=== PATIENT | female | born 1930 | race Caucasian/White ===

== ENCOUNTER 2019-03-24 10:55 | Inpatient (IN) ==
--- OUTSIDE RECORDS SUMMARY | 2019-03-24 10:57 | External Medical Summary | Continuity of Care Document ---
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 , M.D. Refills: 0 raNITIdine HCl - 150 MG Oral Capsule; TAKE 1 CAPSULE DAILY. , M.D. Refills: 0 Vitamin D 08793 UNIT CAPS; TAKE 1 CAPSULE WEEKLY. , M.D. Refills: 0 [employer] Contour Test PERIP M.DManda Refills: 0 Levothyroxine Sodium 75 MCG Oral Tablet; TAKE 1 TABLET DAILY . , M.D. Refills: 0 Pantoprazole Sodium 20 MG Oral Tablet Delayed Release; TAKE 1 TABLET DAILY. , M.D. Refills: 0 Voltaren 1 % Transdermal Gel; apply 2gms to affected area QI D Sanjay orozco Refills: 0 Tylenol Extra Strength 500 MG Oral Tablet; one tab QID pam lanza M.D. Start: 29-Nov-2013 Refills: 0 Gabapentin 300 MG Oral Capsule; TAKE 2 CAPSULES TWICE DAILY , M.D. Refills: 0 Aspirin 81 MG TABS; take 1 tablet 3 times weekly , M.D. Refills: 0 Carvedilol 12.5 MG Oral Tablet; TAKE 1 TABLET TWICE DAILY. , M.D. Refills: 0 Crestor 40 MG Oral Tablet; TAKE 1 TABLET DAILY. , M.D. Refills: 0 Cilostazol 100 MG Oral Tablet; TAKE 1 TABLET TWICE DAILY. , M.D. Refills: 0 metFORMIN HCl - 500 MG Oral Tablet; TAKE 1 TABLET DAILY. , M .D. Refills: 0 Procedures Procedures not documented Immunizations Immunizations not documented Social History - Smoking Status Former smoker Plan of Treatment Planned Observations Planned Goals not documented Results No Known Results Results not documented
[2019-03-24] MEDS ORDERED: ACETAMINOPHEN 500 MG TAB PO STA (11:21)
[2019-03-24] MEDS ORDERED: ONDANSETRON INJ 2 MG/ML 2 ML VIAL IV STA (11:21)
[2019-03-24] MEDS ORDERED: SODIUM CHLORIDE 0.9% 1000ML 1,000 ML IV SCH ×2 (11:30→16:31)
[2019-03-24] MEDS ORDERED: LORazepam 0.5 MG/1 ML VIAL IV STA (11:32)
[2019-03-24 11:37] LABS: Appearance Urine Clear (Clear); Bacteria Urine Automated Negative (Negative); Bilirubin Urine Negative (Negative); Blood Urine Trace (Negative); Color Urine Yellow; Epithelial Cell Urine Auto >30 /lpf (0-5); Glucose Urine UA Negative (Negative); Ketones Urine Negative (Negative); Leukocyte Esterase Urine Negative (Negative); Nitrite Urine Negative (Negative); RBC Urine Automated 0-4 /hpf (0-4); Specific Gravity Urine 1.015 (1.000-1.030); Urobilinogen Urine Negative (Negative); pH Urine 7.5 (4.5-7.5)
[2019-03-24 11:46] LABS: Basophils # (auto) 0.01 K/uL (0-0.2); Basophils % (auto) 0.2 %; Eosinophils # (auto) 0.02 K/uL (0-0.5); Eosinophils % (auto) 0.3 %; Hematocrit (blood only) 37.7 % (37-47); Immature Granulocytes # (auto) 0.01 K/uL (0.00-0.02); Immature Granulocytes % (auto) 0.2 %; Lymphocytes # (auto) 0.87 K/uL (1.2-3.4); Lymphocytes % (auto) 14.8 %; Mean Corpuscular Hgb Conc 34.5 g/dL (32-36); Mean Corpuscular Volume 90.4 fL (80-100); Monocytes # (auto) 0.78 K/uL (0.11-0.59); Monocytes % (auto) 13.3 %; Neutrophils # (auto) 4.19 K/uL (1.4-6.5); Neutrophils % (auto) 71.2 %; Platelet Count 178 K/uL (130-400); RDW Standard Deviation 45.9 fL (36.4-46.3); Red Blood Count 4.17 M/uL (4.2-5.4); White Blood Count 5.88 K/uL (4.8-10.8)
[2019-03-24] MEDS: fentaNYL citrate 100 MCG/2 ML VIAL IV PRN ×2 (11:47→12:44)
[2019-03-24 12:04] LABS: Albumin Level 3.5 gm/dl (3.4-5.0); BUN Creatinine Ratio 19.2 (10-20); Calcium 9.2 mg/dl (8.5-10.1); Creatinine Clr Calc Pharmacy 35.8 ml/min; Est GFR (African American) 44.5; Est GFR (Non-African American) 38.4; Potassium 3.5 mmol/L (3.5-5.1)
[2019-03-24 12:07] LABS: Albumin Globulin Ratio 0.8 (0.9-2); Bilirubin,Total 0.5 mg/dl (0.2-1); Globulin 4.3 gm/dl (2.5-4.0); Total Protein 7.8 gm/dl (6.4-8.2)
[2019-03-24 12:16] LABS: Protein Urine 1+ (Negative)
[2019-03-24] MEDS ORDERED: IOVERSOL 100ml IV PRN (12:25)
--- NOTE | 2019-03-24 12:47 | CT Scan Report ---
CT OF THE ABDOMEN AND PELVIS WITH CONTRAST CLINICAL HISTORY: Right flank pain. COMPARISON STUDY: None. TECHNIQUE: Following IV administration of 94 mL of Optiray-320, axial images of the abdomen and pelvi s were obtained from the lung bases to the proximal femurs. Images were reviewed in the axial, sagitt al, and coronal planes. IV contrast was administered without complication. Automated exposure contro l was utilized for the study. A dose lowering technique was utilized adhering to the principles of A DELIA. CT DOSE: 899.70 mGy.cm FINDINGS: Postoperative findings within the right breast are noted. Heart is moderately enlarged. Pac er leads are partially imaged. Mild biliary ductal dilatation is likely related to previous cholecyst ectomy. 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 A peripherally calcified left renal artery aneurysm measures 1.7 cm. There is no abdominal aortic aneurysm. There is moderate atherosclerotic plaque. No pancreatic ductal dilatation is present. A few left renal cysts are noted. There are bilateral parapelvic cysts. There is no evidence for a bowel obstruction. The appendix is normal. Extensive sigmoid diverticulosis is noted without evidence for acute diverticulitis. Mild L3 compression fractures acute appearing with mild prevertebral infiltration. There is minimal retropuls ion. Old mild L5 compression fracture is noted. IMPRESSION: 1. Acute appearing mild L3 compression fracture with minimal retropulsion. Old L5 compression fractur e. 2. No bowel obstruction. Normal appendix. No acute process within the abdomen or pelvis. 3. 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 1.6 cm peripherally calcified right daly l artery aneurysm. 4. Extensive diverticulosis without evidence for acute diverticulitis. Electronically signed by: Quan Duran M.D. 03/24/2019 12:45 PM
--- NOTE | 2019-03-24 15:13 | History & Physical Report ---
Date of Service March 24, 2019 Assessment & Plan (1) Intractable low back pain: (2) Compression fracture of third lumbar vertebra: (3) Spinal stenosis: This is an 89-year-old female who has a significant past medical history of HTN, HLD, PAD, heart block status post PPM approximately 10 years ago, hypothyroidism, history of breast cancer status post right partial mastectomy in 1997, osteoporosis, arthritis, lumbar spinal stenosis who presents to [facility] ED secondary to intractable low back pain x1 week. In ED patient underwent CT scan of abdomen and pelvis for persistent low back pain. CT revealed acute appearing mild L3 compression fracture with minimal retropulsion along with old L5 compression fracture. There was extensive diverticulosis but no evidence of diverticulitis. Incidentally bilateral renal artery aneurysms were again noted 1.7 cm on the left and 1.6 cm on the right. No other acute abnormality. Her CBC was relatively unremarkable. CMP significant for elevated BUN 24 creatinine 1.25 with unknown baseline. Her urine appeared negative for infection. admit to med/surg consult ortho spine Dr. Presley conservative management with PT/OT, Ice, Pain control Schedule APAP 650 QID; Tramadol 50mg q4hr prn pain Morphine 2mg IV q2hr PRN SEVERE pain complete medrol dose pack, pt on day 4/5 today (4) DAMON (acute kidney injury): Unknown baseline BUN/creatinine 24 and 1.25, this may be normal for her vs DAMON in setting of NSAID use with back pain IVF NS x 1 L ordered Hold HCTZ repeat bmp in am. (5) UTI (urinary tract infection): Diagnosed at OSH on 03/22 Started on Keflex 500 mg 4 times daily, will complete course on 03/30/19 Urinalysis negative in ED (6) HTN (hypertension): Blood pressure elevated in ED likely in setting of pain Continue coreg, losartan hold HCTZ due to possible DAMON (7) HLD (hyperlipidemia): Continue statin (8) PAD (peripheral artery disease): Continue Pletal, ASA, Statin Symptoms mostly easy fatigability lower extremities, no history of vascular intervention (9) History of cardiac pacemaker: hx of heart block s/p PPM approx 10 yrs ago Follows Cardiology in [place], [place] (10) Hypothyroidism: Continue levothyroxine (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 Stevens upon discharge, along with appropriate orthopedic and vascular follow up (renal art aneurysm) Patient was seen and examined in collaboration with Dr. Bullock, please see addendum History of Present Illness Chief Complaint: Low back pain x 1 week. Primary Care Provider: Ailyn Stevens This is an 89-year-old female who has a significant past medical history of HTN, HLD, PAD, heart block status post PPM approximately 10 years ago, hypothyroidism, history of breast cancer status post right partial mastectomy in 1997, osteoporosis, arthritis, lumbar spinal stenosis who presents to [facility] ED secondary to low back pain x1 week. Son is at bedside. No known injury. She states approximately 1 week ago she was favoring her right knee when she may have twisted wrong causing her to have low back pain. Pain is located in the low back region bilaterally, no radiation, described as dull ache when sitting and becomes sharp stabbing with movement or lying down. Currently she is sitting in wheelchair and feels her pain is approximately 5/10 after having IV fentanyl. She has been unable to lie in bed for the past week secondary to her pain. She has tried [id number] Motrin with minimal relief. At baseline she ambulates with a cane but has had significant difficulty ambulating. She was to be seen by Dr. Li on Wednesday but due to debilitating pain opted to come to ED for further evaluation. She was seen in [place] [facility] on 03/[address] scan of the lumbar spine which revealed multilevel lateral recess and neuroforaminal stenosis extending from L2-S1 secondary to desiccation and disc bulge as well as significant facet arthropathy. She had chronic appearing compression fractures of L3 and L5 with severe osteoporosis noted. Also incidentally she had bilateral renal artery aneurysms measuring 1.6 cm on the left and 1.4 cm on the right. Further she was diagnosed with urinary tract infection and placed on Keflex for 7 days. She was also treated with Medrol Dosepak for back pain. In regards to her uti she states her sx are, "leakage and frequency." She denies dysuria, hematuria, increased urgency. Further she denies fever, chills, sweats, lightheadedness, chest pain, shortness of breath, nausea, vomiting, abdominal pain, change in bowel habits. She does elicit to nausea when pain is severe. She also elicits to dizziness with standing quickly. In ED patient underwent CT scan of abdomen and pelvis for persistent low back pain. CT revealed acute appearing mild L3 compression fracture with minimal retropulsion along with old L5 compression fracture. There was extensive diverticulosis but no evidence of diverticulitis. Incidentally bilateral renal artery aneurysms were again noted 1.7 cm on the left and 1.6 cm on the right. No other acute abnormality. Her CBC was relatively unremarkable. CMP significant for elevated BUN 24 creatinine 1.25 with unknown baseline. Her urine appeared negative for infection. Allergies Allergy/AdvReac Type Severity Reaction Status Date / Time meperidine Allergy Verified 03/24/19 12:08 Penicillins Allergy Verified 03/24/19 12:08 tetracycline Allergy Verified 03/24/19 12:08 Tetracyclines Allergy Verified 03/24/19 12:08 N Allergy Unknown Unknown Uncoded 03/24/19 12:08 ANALG/ANTIPYRET Allergy Unknown Uncoded 03/24/19 12:08 ANTIBIOT Allergy Unknown Uncoded 03/24/19 12:08 OPIATEAGONISTS Allergy Unknown Uncoded 03/24/19 12:08 Home Medications Home Medications Medication Instructions Recorded Confirmed Type aspirin [Aspirin Low Dose] 81 mg PO QAM 03/24/19 03/24/19 History carvedilol 25 mg PO BID 03/24/19 03/24/19 History cephalexin 500 mg PO Q6H 03/24/19 03/24/19 History cilostazol 100 mg PO BID 03/24/19 03/24/19 History gabapentin 300 mg PO BID 03/24/19 03/24/19 History levothyroxine 75 mcg PO MOTUWETHFRSA 03/24/19 03/24/19 History losartan-hydrochlorothiazide 1 tab PO QAM 03/24/19 03/24/19 History methylprednisolone 4 mg PO UD 03/24/19 03/24/19 History rosuvastatin 40 mg PO HS 03/24/19 03/24/19 History Past Med/Surg History Medical History Hypothyroidism (Chronic) HTN (hypertension) (Chronic) HLD (hyperlipidemia) (Chronic) PAD (peripheral artery disease) (Chronic) History of cardiac pacemaker (Chronic) History of complete heart block (Chronic) Status post pacemaker ~10 years ago Neuropathy (Chronic) History of right breast cancer (Chronic) Status post partial mastectomy with radiation Spinal stenosis (Chronic) Arthritis (Chronic) Surgical History History of partial mastectomy of right breast (Chronic) History of cholecystectomy (Chronic) History of hysterectomy with oophorectomy (Chronic) History of lumbar discectomy (Chronic) At age of 39 Family History Father Coronary heart disease Mother Stroke Sister Breast cancer Brother CHF (congestive heart failure) Social History Preferred Language: Hebrew Communication Ability: Effective marital status: Current Living Situation: Spouse other: Ambulates with cane Feels Safe at Home: Yes Smoking Status: Never smoker Hx Alcohol Use: Yes Alcohol type: beer Alcohol Intake Frequency: Rarely Hx Substance Use: No Review of Systems Review of Systems: As noted per HPI, 10 systems reviewed and negative unless noted above. Physical Exam Physical Exam: Gen: WD/WN, [place], F, sitting up in wheel chair, NAD, pleasant, conversing easily Head: Normocephalic, Atraumatic Eyes: Sclera normal, no conjunctival injection, PERRLA, EOMI ENT: Gross hearing intact, normal pharynx, mucous membranes moist Neck: supple, no adenopathy, No JVD, no bruit, Resp: Clear to auscultation b/l, no wheeze, rales, rhonchi. 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 No pain to palpation along vertebral processes, +straight leg raise Extremities: No edema bilaterally Skin: warm, moist, no rash, negative turgor, cap refill < 2sec Neuro: Alert and oriented x 3, speech normal, good mood/affect, cran nerve 2-12 intact grossly : deferred Results & Data Vital Signs (Past 12 Hours) Vital Signs Temp Pulse Pulse Resp BP BP Pulse Ox 03/24/19 14:15 60 17 187/81 H 99 03/24/19 12:41 78 17 188/80 H 96 03/24/19 11:00 36.7 C 81 20 168/84 H 92 Laboratory Results Short CBC 03/24/19 Range/Units 11:40 WBC 5.88 (4.8-10.8) K/uL Hgb 13.0 (12.0-16.0) g/dL Hct 37.7 (37-47) % Plt Count 178 (130-400) K/uL BMP 03/24/19 11:40 Sodium 137 Potassium 3.5 Chloride 101 Carbon Dioxide 30 BUN 24 H Creatinine 1.25 H Glucose 103 H Calcium 9.2 Liver Function 03/24/19 Range/Units 11:40 Total Bilirubin 0.5 (0.2-1) mg/dl AST 15 (15-37) U/L ALT 16 (12-78) U/L Alkaline Phosphatase 64 (45-117) U/L Albumin 3.5 (3.4-5.0) gm/dl Urine 03/24/19 Range/Units 11:10 Urine Color Yellow Urine Appearance Clear (Clear) Urine pH 7.5 (4.5-7.5) Ur Specific [place] 1.015 (1.000-1.030) Urine Protein 1+ H (Negative) Urine Glucose (UA) Negative (Negative) Diagnostic Findings CT scan abd/pelvis: FINDINGS: Postoperative findings within the right breast are noted. Heart is moderately enlarged. Pacer leads are partially imaged. Mild biliary ductal dilatation is likely related to previous cholecystectomy. 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 A peripherally calcified left renal artery aneurysm measures 1.7 cm. There is no abdominal aortic aneurysm. There is moderate atherosclerotic plaque. No pancreatic ductal dilatation is present. A few left renal cysts are noted. There are bilateral parapelvic cysts. There is no evidence for a bowel obstruction. The appendix is normal. Extensive sigmoid diverticulosis is noted without evidence for acute diverticulitis. Mild L3 compression fractures acute appearing with mild prevertebral infiltration. There is minimal retropulsion. Old mild L5 compression fracture is noted. CT Scan Abd/Pelvis: 03/22 Clfd ER ReporT: CT scan of the lumbar spine which revealed multilevel lateral recess and neuroforaminal stenosis extending from L2-S1 secondary to desiccation and disc bulge as well as significant facet arthropathy. She had chronic appearing compression fractures of L3 and L5 with severe osteoporosis noted. Also incidentally she had bilateral renal artery aneurysms measuring 1.6 cm on the left and 1.4 cm on the right. Medications Administered Fentanyl Citrate (Fentanyl Citrate) 25 mcg IV Q15M PRN PRN Reason: Pain Stop: 04/07/19 11:20 Last Admin: 03/24/19 12:44 Dose: 25 mcg Documented by: [id number] Admin: 03/24/19 11:47 Dose: 25 mcg Documented by: [id number] Sodium Chloride (Nss 1000ml) 1,000 mls @ 100 mls/hr IV .Q10H KEYLA Stop: 03/24/19 21:29 Last Admin: 03/24/19 11:48 Dose: 100 mls/hr Documented by: [id number] Ioversol (Optiray 320 100ml) 94 ml IV ONCE PRN PRN Reason: Interaction Checking Stop: 03/28/19 12:24 Last Admin: 03/24/19 12:25 Dose: 94 ml Documented by: [id number] Discontinued Medications Acetaminophen (Tylenol) 1,000 mg PO NOW STA Stop: 03/24/19 11:22 Last Admin: 03/24/19 11:44 Dose: 1,000 mg Documented by: [id number] Lorazepam (Ativan) 0.5 mg in 1 mls @ 1 mls/min IV NOW STA Stop: 03/24/19 11:33 Last Admin: 03/24/19 11:46 Dose: 1 mls/min Documented by: [id number] Ondansetron HCl (Zofran) 4 mg IV NOW STA Stop: 03/24/19 11:22 Last Admin: 03/24/19 11:45 Dose: 4 mg Documented by: [id number] Code Status & VTE Plan Code Status Full Code VTE Prophylaxis Plan VTE Prophylaxis will be ordered: Yes Supervising Physician Co-Signing Physician Notes I have seen and assessed the patient with physician urology physician assistant and agree with the assessment and plan and would like to comment that Main issue for patient coming to hospital is back pain and CT finding of Old L5 compression fracture with acute appearing mild L3 compression fracture with minimal retropulsion. Patient reports that shes has been taking NSAIDs 3 to 4 times a day and medrol pack at home without relief especially when she tries to lay flat and when she i s in a position to try to stand up On my exam General: no acute distress Back: patient able to sit up and maintain upright sitting position without weakness, currently she feels more tenderness when pressing on the right lower back Lungs: clear to auscultaion bilaterally, no wheezing Heart: regular rate abdomen: soft nontender, positive bowel sounds There are incidental findings of 1.7 cm peripherally calcified left renal artery aneurysm and1.6 cm peripherally calcified right renal artery aneurysm and Extensive diverticulosis, and patient has been on antibiotics for urinary tract infection (current urine analysis appears free of bacteria), however as per patient and patients son Hilton ([phone], other son [phone] Benigno) that goal is to alleviate severity of back pain. Hypertension likely exacerbated by pain will have patient on scheduled tylenol as 325 mg every 6 hours ; Tramadol 50mg q4hr prn pain for pain; Morphine 2mg IV q2hr PRN SEVERE pain, medrol dose pack, and seek orthopedic consultation. will also request pain management consult if they are available to consider epidural injection for patient if no acute surgical interventions. (1) Compression fracture of third lumbar vertebra Encounter type: initial encounter Qualified Code(s): S32.030A - Wedge compression fracture of third lumbar vertebra, initial encounter for closed fracture
[2019-03-24] MEDS ORDERED: MAGNESIUM HYDROXIDE SUSP 30 ML UDC PO PRN (16:31)
[2019-03-24] MEDS ORDERED: POLYETHYLENE (MIRALAX) 17 GM PACK PO PRN (16:31)
[2019-03-24] MEDS ORDERED: ALUMINUM/MAGNESIUM SUSP 30 ML UDC PO PRN (16:31)
[2019-03-24] MEDS ORDERED: ONDANSETRON INJ 2 MG/ML 2 ML VIAL IV PRN (16:31)
[2019-03-24] MEDS ORDERED: TRAMADOL HCL 50 MG TABLET PO PRN (16:31)
[2019-03-24] MEDS ORDERED: MoRPHine SULFATE 2 MG/ML CARP IV PRN (16:31)
[2019-03-24] MEDS ORDERED: ACETAMINOPHEN 325 MG TAB PO PRN (16:31)
--- NOTE | 2019-03-24 16:39 | Emergency Department Note ---
Entered by Gi Horn acting as a scribe for History of Present Illness General Chief complaint: Back Injury/Pain Stated complaint: EXTREME AND ACUTE LOWER BACK PAIN Time Seen by Provider: 03/24/19 11:04 Source: patient and family Mode of arrival: ambulatory Limitations: no limitations History of Present Illness Provider complaint: low back pain Onset (ago): week(s) 1 Location: back Pain Consistency: + other (persistent) Maximum Pain Intensity: 10 Current Pain Intensity: 9 Quality: + other (low back pain) Associated symptoms: + loss of appetite and + other (UTI symptoms, restless) Treatments prior to arrival: NSAID (ibuprofen) and other (steroids) The patient is an 89 year old female with a past medical history of arthritis, multi-level disc herniation, and spinal stenosis who presents to the ER with her son with complaints of persistent lower back pain that began about a week ago. The patient denies any injuries or falls but believes she may have twisted her back on a step on March 16. She states that she is unable to sleep secondary to the pain. The son at bedside notes that the patient had a CAT scan of her lower back done in [place] and started on a six day course of steroids. The patient reports that she has also been taking ibuprofen in addition to these steroids. The son states that the patient has a follow-up appointment on April 05 but that she cannot wait that long. He notes that the patient is unable to tolerate an MRI secondary to the pain as well as having a pacemaker. The son also reports that the patient was found to have a UTI and was started on Keflex. He states that she is not mobile and has no help at home. Per son, the patient has had a loss of appetite as well. The patient rated her pain a 9/10 at triage. Home Medications Home Medications Medication Instructions Recorded Confirmed Type aspirin [Aspirin Low Dose] 81 mg PO QAM 03/24/19 03/24/19 History carvedilol 25 mg PO BID 03/24/19 03/24/19 History cephalexin 500 mg PO Q6H 03/24/19 03/24/19 History cilostazol 100 mg PO BID 03/24/19 03/24/19 History gabapentin 300 mg PO BID 03/24/19 03/24/19 History levothyroxine 75 mcg PO MOTUWETHFRSA 03/24/19 03/24/19 History losartan-hydrochlorothiazide 1 tab PO QAM 03/24/19 03/24/19 History methylprednisolone 4 mg PO UD 03/24/19 03/24/19 History rosuvastatin 40 mg PO HS 03/24/19 03/24/19 History Allergies Allergy/AdvReac Type Severity Reaction Status Date / Time meperidine Allergy Verified 03/24/19 12:08 Penicillins Allergy Verified 03/24/19 12:08 tetracycline Allergy Verified 03/24/19 12:08 Tetracyclines Allergy Verified 03/24/19 12:08 N Allergy Unknown Unknown Uncoded 03/24/19 12:08 ANALG/ANTIPYRET Allergy Unknown Uncoded 03/24/19 12:08 ANTIBIOT Allergy Unknown Uncoded 03/24/19 12:08 OPIATEAGONISTS Allergy Unknown Uncoded 03/24/19 12:08 Past Med/Surg History Medical History Hypothyroidism (Chronic) HTN (hypertension) (Chronic) HLD (hyperlipidemia) (Chronic) PAD (peripheral artery disease) (Chronic) History of cardiac pacemaker (Chronic) History of complete heart block (Chronic) Status post pacemaker ~10 years ago Neuropathy (Chronic) History of right breast cancer (Chronic) Status post partial mastectomy with radiation Spinal stenosis (Chronic) Arthritis (Chronic) Surgical History History of partial mastectomy of right breast (Chronic) History of cholecystectomy (Chronic) History of hysterectomy with oophorectomy (Chronic) History of lumbar discectomy (Chronic) At age of 39 Family History Father Coronary heart disease Mother Stroke Sister Breast cancer Brother CHF (congestive heart failure) Social History Preferred Language: Estonian Communication Ability: Effective Panel Cutter Required: No Beliefs That Will Affect Care: None marital status: Current Living Situation: Spouse Other Information That Helps Us Care for You: No other: Ambulates with cane Feels Safe at Home: Yes Safety Concerns: Feels Safe At This Time Smoking Status: Former smoker Do You Dip or Chew Tobacco: No Smoking End Date: 50 years ago Second Hand Exposure: No Tobacco Cessation Education Requested by Patient: No Hx Alcohol Use: No Hx Substance Use: No Review of Systems See HPI for pertinent positives & negatives. and A total of 10 systems reviewed and were otherwise negative Physical Exam Vital Signs Vital Signs - 24 hr 03/24/19 11:00 03/24/19 12:41 03/24/19 14:15 Temperature 36.7 C Temperature Source Oral Sepsis Recent Fever Within 48 Hours No Sepsis New/Unexplained Change in Mental Status No Sepsis Action Taken by Nursing No Action Required Pulse Rate 81 Pulse Rate [Left Finger] 78 60 Respiratory Rate 20 17 17 Respiratory Effort / Characteristics Non-Labored Spontaneous Respiratory Depth Normal Normal Blood Pressure 168/84 H Blood Pressure [Left Arm] 188/80 H 187/81 H Blood Pressure Mean 112 Blood Pressure Mean [Left Arm] 116 116 Pulse Oximetry 92 96 99 Oxygen Delivery Method Room Air Room Air Room Air Vital signs reviewed. General: Sitting up in wheelchair, no apparent distress. HEENT: No scleral icterus, PERRLA, neck supple. Atraumatic. Cardiovascular: Regular rate and rhythm, no extra sounds. Pulmonary: Clear to auscultation bilaterally, normal work of breathing. Abdomen: Soft, nondistended, positive bowel sounds. Musculoskeletal: Atraumatic, no peripheral edema. Non-tender to palp over the cervical, thoracic or lumbar spine. No step-off or deformity. Tenderness to palpation over the right flank/lumbar paraspinous muscles. Neurologic: Patient awake alert and oriented x 3 Skin: Warm, dry, no rash Course 1117: Past medical records reviewed. The patient was evaluated in room C9. A complete history and physical examination was performed. 1146: I updated the patient and her son and they are agreeable with the treatment plan. 1150: I discussed the patient's case with Dr. Kobe White Hospitalist. He will evaluate the patient for further management. Administered Medications Acetaminophen (Tylenol) 325 mg PO Q6H [facility] Stop: 04/23/19 16:59 Last Admin: 03/27/19 04:54 Dose: 325 mg Documented by: [id number] Admin: 03/26/19 23:26 Dose: Not Given Documented by: [id number] Admin: 03/26/19 18:10 Dose: 325 mg Documented by: [id number] Admin: 03/26/19 13:38 Dose: 325 mg Documented by: [id number] Admin: 03/26/19 05:11 Dose: 325 mg Documented by: [id number] Admin: 03/25/19 22:07 Dose: 325 mg Documented by: [id number] Admin: 03/25/19 19:23 Dose: 325 mg Documented by: [id number] Admin: 03/25/19 13:00 Dose: 325 mg Documented by: [id number] Admin: 03/25/19 05:58 Dose: 325 mg Documented by: [id number] Admin: 03/24/19 21:54 Dose: 325 mg Documented by: [id number] Admin: 03/24/19 17:27 Dose: 325 mg Documented by: [id number] Amlodipine Besylate (Norvasc) 10 mg PO [facility] Stop: 04/26/19 08:59 Last Admin: 03/27/19 08:05 Dose: 10 mg Documented by: [id number] Aspirin (Ecotrin Ectab) 81 mg PO [facility] Stop: 04/24/19 08:59 Last Admin: 03/26/19 10:32 Dose: Not Given Documented by: [id number] Admin: 03/25/19 09:18 Dose: 81 mg Documented by: [id number] Carvedilol (Coreg) 25 mg PO BID [facility] Stop: 04/23/19 20:59 Last Admin: 03/27/19 08:03 Dose: 25 mg Documented by: [id number] Admin: 03/26/19 20:37 Dose: 25 mg Documented by: [id number] Admin: 03/26/19 10:33 Dose: 25 mg Documented by: [id number] Admin: 03/25/19 21:47 Dose: 25 mg Documented by: [id number] Admin: 03/25/19 09:17 Dose: 25 mg Documented by: [id number] Admin: 03/24/19 20:23 Dose: 25 mg Documented by: [id number] Cephalexin HCl (Keflex) 500 mg PO Q12H [facility]; Protocol Stop: 04/01/19 20:59 Last Admin: 03/27/19 08:04 Dose: 500 mg Documented by: [id number] Admin: 03/26/19 20:37 Dose: 500 mg Documented by: [id number] Admin: 03/26/19 10:34 Dose: 500 mg Documented by: [id number] Admin: 03/25/19 21:46 Dose: 500 mg Documented by: [id number] Admin: 03/25/19 09:18 Dose: 500 mg Documented by: [id number] Admin: 03/24/19 20:23 Dose: 500 mg Documented by: [id number] Cilostazol (Pletal) 100 mg PO BID [facility] Stop: 04/23/19 20:59 Last Admin: 03/27/19 08:06 Dose: 100 mg Documented by: [id number] Admin: 03/26/19 20:37 Dose: 100 mg Documented by: [id number] Admin: 03/26/19 13:32 Dose: Not Given Documented by: [id number] Admin: 03/25/19 21:46 Dose: 100 mg Documented by: [id number] Admin: 03/25/19 09:20 Dose: 100 mg Documented by: [id number] Admin: 03/24/19 20:23 Dose: 100 mg Documented by: [id number] Citalopram Hydrobromide (Celexa) 10 mg PO DAILY [facility] Stop: 04/24/19 08:59 Last Admin: 03/27/19 08:07 Dose: 10 mg Documented by: [id number] Admin: 03/26/19 10:32 Dose: 10 mg Documented by: [id number] Admin: 03/25/19 09:14 Dose: 10 mg Documented by: [id number] Docusate Sodium (Colace) 100 mg PO BID [facility] Stop: 04/24/19 20:59 Last Admin: 03/27/19 08:03 Dose: 100 mg Documented by: [id number] Admin: 03/26/19 20:39 Dose: 100 mg Documented by: [id number] Admin: 03/26/19 10:33 Dose: 100 mg Documented by: [id number] Admin: 03/25/19 21:47 Dose: 100 mg Documented by: [id number] Enoxaparin Sodium (Lovenox) 30 mg SQ QAM [facility] Stop: 04/24/19 09:59 Last Admin: 03/26/19 10:31 Dose: Not Given Documented by: [id number] Admin: 03/25/19 13:02 Dose: 30 mg Documented by: [id number] Gabapentin (Neurontin) 300 mg PO BID [facility] Stop: 04/23/19 20:59 Last Admin: 03/27/19 08:05 Dose: 300 mg Documented by: [id number] Admin: 03/26/19 20:37 Dose: 300 mg Documented by: [id number] Admin: 03/26/19 13:37 Dose: 300 mg Documented by: [id number] Admin: 03/25/19 21:46 Dose: 300 mg Documented by: [id number] Admin: 03/25/19 09:19 Dose: 300 mg Documented by: [id number] Admin: 03/24/19 20:23 Dose: 300 mg Documented by: [id number] Hydrochlorothiazide (Hctz) 12.5 mg PO QAM [facility] Stop: 04/24/19 15:44 Last Admin: 03/27/19 08:04 Dose: 12.5 mg Documented by: [id number] Admin: 03/26/19 10:36 Dose: 12.5 mg Documented by: [id number] Admin: 03/25/19 19:22 Dose: 12.5 mg Documented by: [id number] Hydromorphone HCl (Dilaudid) 0.25 mg IV Q6H PRN PRN Reason: Pain Stop: 04/07/19 23:56 Last Admin: 03/26/19 03:09 Dose: 0.25 mg Documented by: [id number] Levothyroxine Sodium (Synthroid) 75 mcg PO [id number] [facility] Stop: 04/24/19 06:29 Last Admin: 03/27/19 06:27 Dose: 75 mcg Documented by: [id number] Admin: 03/25/19 05:58 Dose: 75 mcg Documented by: [id number] Lidocaine (Lidoderm 5%) 1 patch TD QAM [facility] Stop: 04/25/19 08:59 Last Admin: 03/27/19 08:18 Dose: 1 patch Documented by: [id number] Admin: 03/26/19 10:35 Dose: 1 patch Documented by: [id number] Losartan [facility]ar) [facility] Stop: 04/24/19 08:59 Last Admin: 03/27/19 08:02 Dose: 50 mg Documented by: [id number] Admin: 03/26/19 10:36 Dose: 50 mg Documented by: [id number] Admin: 03/25/19 09:18 Dose: 50 mg Documented by: [id number] Magnesium Hydroxide (Milk Of Magnesia) 30 ml PO Q6H PRN PRN Reason: Constipation Stop: 04/23/19 16:30 Last Admin: 03/26/19 13:38 Dose: 30 ml Documented by: [id number] Methylprednisolone (Medrol) 4 mg PO DAILY [facility]; Taper; Protocol Stop: 03/27/19 16:59 Last Admin: 03/27/19 08:05 Dose: 4 mg Documented by: [id number] Admin: 03/26/19 10:34 Dose: 4 mg Documented by: [id number] Admin: 03/25/19 21:46 Dose: 4 mg Documented by: [id number] Admin: 03/25/19 13:02 Dose: 4 mg Documented by: [id number] Admin: 03/25/19 09:19 Dose: 4 mg Documented by: [id number] Admin: 03/24/19 20:24 Dose: 4 mg Documented by: [id number] Admin: 03/24/19 17:28 Dose: 4 mg Documented by: [id number] Miscellaneous (Remove Lidoderm Patch) 1 ea N/A DAILY@2100 [facility] Stop: 04/23/19 20:59 Last Admin: 03/26/19 19:56 Dose: 1 ea Documented by: [id number] Admin: 03/25/19 21:47 Dose: 1 ea Documented by: [id number] Admin: 03/25/19 00:24 Dose: Not Given Documented by: [id number] Oxycodone HCl (Oxycontin) 10 mg PO Q12H [facility] Stop: 04/08/19 15:59 Last Admin: 03/27/19 08:18 Dose: 10 mg Documented by: [id number] Admin: 03/26/19 22:48 Dose: 10 mg Documented by: [id number] Admin: 03/26/19 08:32 Dose: 10 mg Documented by: [id number] Admin: 03/25/19 19:50 Dose: 10 mg Documented by: [id number] Admin: 03/25/19 19:20 Dose: Not Given Documented by: [id number] Rosuvastatin Calcium (Crestor) 40 mg PO HS [facility] Stop: 04/23/19 20:59 Last Admin: 03/26/19 20:38 Dose: 40 mg Documented by: [id number] Admin: 03/25/19 21:47 Dose: 40 mg Documented by: [id number] Admin: 03/24/19 20:23 Dose: 40 mg Documented by: [id number] Sennosides (Senokot) 8.6 mg PO QAM [facility] Stop: 04/24/19 15:59 Last Admin: 03/27/19 08:06 Dose: 8.6 mg Documented by: [id number] Admin: 03/26/19 13:37 Dose: 8.6 mg Documented by: [id number] Admin: 03/25/19 19:23 Dose: 8.6 mg Documented by: [id number] Discontinued Medications Acetaminophen (Tylenol) 1,000 mg PO NOW STA Stop: 03/24/19 11:22 Last Admin: 03/24/19 11:44 Dose: 1,000 mg Documented by: [id number] Amlodipine Besylate (Norvasc) 10 mg PO 1545 ONE Stop: 03/26/19 15:46 Last Admin: 03/26/19 16:02 Dose: 10 mg Documented by: [id number] Fentanyl Citrate (Fentanyl Citrate) 25 mcg IV Q15M PRN PRN Reason: Pain Stop: 04/07/19 11:20 Last Admin: 03/24/19 12:44 Dose: 25 mcg Documented by: [id number] Admin: 03/24/19 11:47 Dose: 25 mcg Documented by: [id number] Hydromorphone HCl (Dilaudid) 0.25 mg IV NOW STA Stop: 03/24/19 23:55 Last Admin: 03/25/19 00:23 Dose: 0.25 mg Documented by: [id number] Sodium Chloride (Nss 1000ml) 1,000 mls @ 100 mls/hr IV .Q10H [facility] Stop: 03/24/19 21:29 Last Infusion: 03/24/19 23:36 Dose: 0 mls/hr Documented by: [id number] Admin: 03/24/19 11:48 Dose: 100 mls/hr Documented by: [id number] Lorazepam (Ativan) 0.5 mg in 1 mls @ 1 mls/min IV NOW STA Stop: 03/24/19 11:33 Last Admin: 03/24/19 11:46 Dose: 1 mls/min Documented by: [id number] Sodium Chloride (Nss 1000ml) 1,000 mls @ 80 mls/hr IV .[id number] [facility] Stop: 03/25/19 05:00 Last Infusion: 03/25/19 06:14 Dose: 0 mls/hr Documented by: [id number] Infusion: 03/24/19 22:42 Dose: 80 mls/hr Documented by: [id number] Admin: 03/24/19 17:28 Dose: 80 mls/hr Documented by: [id number] Lorazepam (Ativan) 0.25 mg in 0.5 mls @ 0.5 mls/min IV NOW STA Stop: 03/26/19 14:28 Last Admin: 03/26/19 22:49 Dose: 0.5 mls/min Documented by: [id number] Sodium Chloride (Nss 1000ml) 1,000 mls @ 40 mls/hr IV .Q24H [facility] Stop: 04/26/19 00:29 Last Infusion: 03/27/19 08:26 Dose: 0 mls/hr Documented by: [id number] Admin: 03/27/19 00:50 Dose: 40 mls/hr Documented by: [id number] Ioversol (Optiray 320 100ml) 94 ml IV ONCE PRN PRN Reason: Interaction Checking Stop: 03/28/19 12:24 Last Admin: 03/24/19 12:25 Dose: 94 ml Documented by: [id number] Lidocaine (Lidoderm 5%) 1 patch TD NOW STA Stop: 03/24/19 23:55 Last Admin: 03/25/19 00:20 Dose: 1 patch Documented by: [id number] Morphine Sulfate (Morphine Sulfate) 2 mg IV Q4H PRN PRN Reason: Severe Pain Stop: 04/07/19 16:30 Last Admin: 03/24/19 22:49 Dose: 2 mg Documented by: [id number] Ondansetron HCl (Zofran) 4 mg IV NOW STA Stop: 03/24/19 11:22 Last Admin: 03/24/19 11:45 Dose: 4 mg Documented by: [id number] Oxycodone HCl (Roxicodone Immediate Rel) 5 mg PO Q4H PRN PRN Reason: Pain Stop: 04/07/19 23:56 Last Admin: 03/25/19 10:40 Dose: 5 mg Documented by: [id number] Admin: 03/25/19 06:08 Dose: 5 mg Documented by: [id number] Potassium Chloride (Klor-Con M20) 40 meq PO ONE ONE Stop: 03/24/19 17:16 Last Admin: 03/24/19 17:29 Dose: 40 meq Documented by: [id number] Tramadol HCl (Ultram) 50 mg PO Q4H PRN PRN Reason: Moderate Pain Stop: 04/23/19 16:30 Last Admin: 03/24/19 21:54 Dose: 50 mg Documented by: [id number] Medical Decision Making Differential Diagnosis Differential diagnosis includes: musculoskeletal, disc herniation, fracture, aortic disease, metastatic disease, cord compression, discitis, infection, renal colic, gastrointestinal, acute exacerbation of chronic back pain, sciatica, cauda equina, as well as others were entertained. Medical Records Attestation: I reviewed the patient's medical records. Home Medications Current Medication List: was personally reviewed by me Laboratory Data Attestation: I reviewed the patient's lab results. Result diagrams: 03/27/19 07:16 03/26/19 07:48 Lab Results 03/24/19 03/24/19 03/24/19 Range/Units 11:10 11:40 11:40 WBC 5.88 (4.8-10.8) K/uL RBC 4.17 L (4.2-5.4) M/uL Hgb 13.0 (12.0-16.0) g/dL Hct 37.7 (37-47) % MCV 90.4 (80-100) fL MCH 31.2 (25-34) pg MCHC 34.5 (32-36) g/dL RDW Std Deviation 45.9 (36.4-46.3) fL RDW Coeff of Danielle 14.0 (11.5-14.5) % Plt Count 178 (130-400) K/uL MPV 10.0 (7.4-10.4) fL Immature Gran % (Auto) 0.2 % Neut % (Auto) 71.2 % Lymph % (Auto) 14.8 % [place] % (Auto) 13.3 % Eos % (Auto) 0.3 % Baso % (Auto) 0.2 % Immature Gran # (Auto) 0.01 (0.00-0.02) K/uL Neut # (Auto) 4.19 (1.4-6.5) K/uL Lymph # (Auto) 0.87 L (1.2-3.4) K/uL [place]in # (Auto) 0.78 H (0.11-0.59) K/uL Eos # (Auto) 0.02 (0-0.5) K/uL Baso # (Auto) 0.01 (0-0.2) K/uL Sodium 137 (136-145) mmol/L Potassium 3.5 (3.5-5.1) mmol/L Chloride 101 (98-107) mmol/L Carbon Dioxide 30 (21-32) mmol/L Anion Gap 6.0 (3-11) BUN 24 H (7-18) mg/dl Creatinine 1.25 H (0.6-1.2) mg/dl Est Cr Clr Drug Dosing 35.8 ml/min Est GFR ( Amer) 44.5 Est GFR (Non-Af Amer) 38.4 BUN/Creatinine Ratio 19.2 (10-20) Glucose 103 H (70-99) mg/dl Calcium 9.2 (8.5-10.1) mg/dl Total Bilirubin 0.5 (0.2-1) mg/dl AST 15 (15-37) U/L ALT 16 (12-78) U/L Alkaline Phosphatase 64 (45-117) U/L Total Protein 7.8 (6.4-8.2) gm/dl Albumin 3.5 (3.4-5.0) gm/dl Globulin 4.3 H (2.5-4.0) gm/dl Albumin/Globulin Ratio 0.8 L (0.9-2) Urine Color Yellow Urine Appearance Clear (Clear) Urine pH 7.5 (4.5-7.5) Ur Specific [place] 1.015 (1.000-1.030) Urine Protein 1+ H (Negative) Urine Glucose (UA) Negative (Negative) Urine Ketones Negative (Negative) Urine Blood Trace H (Negative) Urine Nitrite Negative (Negative) Urine Bilirubin Negative (Negative) Urine Urobilinogen Negative (Negative) Ur Leukocyte Esterase Negative (Negative) Urine WBC (Auto) 1-5 (0-5) /hpf Urine RBC (Auto) 0-4 (0-4) /hpf U Hyaline Cast (Auto) 1-5 (0-5) /lpf U Epithel Cells (Auto) >30 H (0-5) /lpf Urine Bacteria (Auto) Negative (Negative) Imaging Data Radiologist's Impression: Radiology results as stated below per my review and the radiologist's interpretation: CT OF THE ABDOMEN AND PELVIS WITH CONTRAST CLINICAL HISTORY: Right flank pain. COMPARISON STUDY: None. TECHNIQUE: Following IV administration of 94 mL of Optiray-320, axial images of the abdomen and pelvis were obtained from the lung bases to the proximal femurs. Images were reviewed in the axial, sagittal, and coronal planes. IV contrast was administered without complication. Automated exposure control was utilized for the study. A dose lowering technique was utilized adhering to the principles of ALARA. CT DOSE: 899.70 mGy.cm FINDINGS: Postoperative findings within the right breast are noted. Heart is moderately enlarged. Pacer leads are partially imaged. Mild biliary ductal dilatation is likely related to previous cholecystectomy. 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 A peripherally calcified left renal artery aneurysm measures 1.7 cm. There is no abdominal aortic aneurysm. There is moderate atherosclerotic plaque. No pancreatic ductal dilatation is present. A few left renal cysts are noted. There are bilateral parapelvic cysts. There is no evidence for a bowel obstruction. The appendix is normal. Extensive sigmoid diverticulosis is noted without evidence for acute diverticulitis. Mild L3 compression fractures acute appearing with mild prevertebral infiltration. There is minimal retropulsion. Old mild L5 compression fracture is noted. IMPRESSION: 1. Acute appearing mild L3 compression fracture with minimal retropulsion. Old L5 compression fracture. 2. No bowel obstruction. Normal appendix. No acute process within the abdomen or pelvis. 3. 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 4. Extensive diverticulosis without evidence for acute diverticulitis. Electronically signed by: Quan Duran M.D. 03/24/2019 12:45 PM Blood Pressure Blood Pressure Findings: Elevated blood pressure Blood Pressure Disposition: further management by hospitalist MDM Narrative This pt was evaluated and appeared to be in no distress. IV access was obtained and lab work was drawn. Pt was medicated with po tylenol, IV fentanyl, IV ativan, IV zofran. CT imaging reads from OSH were reviewed as son brought them along. CT abd pelvis was ordered to r/o acute intraabdominal pathology given lack of trauma. This study is significant for acute L3 compression fx. Pt is unable to tolerate the pain or care for herself. She will be evaluated by the hospitalist for further management. Impression & Plan Intractable low back pain, Renal artery aneurysm, Compression fracture of third lumbar vertebra, Lumbar disc herniation Discharge Plan Visit Data *Final* Discharge Date/Time: 03/24/19 16:12 Chief Complaint: Back Injury/Pain Stated Complaint: EXTREME AND ACUTE LOWER BACK PAIN ED Provider: Jennifer Carvajal Discharge Problem: Intractable low back pain, Renal artery aneurysm, Compression fracture of third lumbar vertebra, Lumbar disc herniation Patient Disposition: Admitted As Inpatient Discharge Instructions Interventions: ED Discharge Assessment Last Done: 03/24/19 16:12 Discharge Problem: Compression fracture of third lumbar vertebra Qualifiers: Encounter type: initial encounter Qualified Code(s): S32.030A - Wedge compression fracture of third lumbar vertebra, initial encounter for closed fracture The scribe's documentation has been prepared under my direction and personally reviewed by me in its entirety. I confirm that the note above accurately reflects all work, treatment, procedures, and medical decision making performed by me.
[2019-03-24] MEDS ORDERED: ACETAMINOPHEN 325 MG TAB PO SCH (17:00)
[2019-03-24] MEDS ORDERED: POTASSIUM CHLORIDE 20 MEQ TABCR PO ONE (17:15)
[2019-03-24] MEDS: ACETAMINOPHEN 325 MG TAB PO SCH ×2 (17:27→21:54)
[2019-03-24] MEDS: methylPREDNISolone 4 MG TAB PO SCH ×2 (17:28→20:24)
[2019-03-24] MEDS: CARVEDILOL 25 MG TAB PO SCH (20:23)
[2019-03-24] MEDS: CILOSTAZOL 100 MG TAB PO SCH (20:23)
[2019-03-24] MEDS: ROSUVASTATIN CALCIUM 20 MG TAB PO SCH (20:23)
[2019-03-24] MEDS: GABAPENTIN 300 MG CAP PO SCH (20:23)
[2019-03-24] MEDS: cephALEXin 500 MG CAP PO SCH (20:23)
[2019-03-24] MEDS ORDERED: LIDOCAINE 5% 1 PATCH TD STA (23:54)
[2019-03-24] MEDS ORDERED: HYDROmorphone INJ 0.5 MG/0.5 ML SYR IV STA (23:54)
[2019-03-24] MEDS ORDERED: HYDROmorphone INJ 0.5 MG/0.5 ML SYR IV PRN (23:57)
[2019-03-25] MEDS: ACETAMINOPHEN 325 MG TAB PO SCH ×4 (05:58→22:07)
[2019-03-25] MEDS: LEVOTHYROXINE SODIUM 75 MCG TABLET PO SCH (05:58)
[2019-03-25] MEDS: OXYCODONE HCL IR 5 MG TAB (IMMEDIATE RELEASE) PO PRN ×2 (06:08→10:40)
[2019-03-25 08:15] LABS: Hematocrit (blood only) 41.7 % (37-47); Hemoglobin 13.9 g/dL (12.0-16.0); Mean Corpuscular Hgb Conc 33.3 g/dL (32-36); Mean Corpuscular Volume 93.3 fL (80-100); Mean Platelet Volume 10.4 fL (7.4-10.4); Platelet Count 158 K/uL (130-400); RDW Coefficient of Variation 14.2 % (11.5-14.5); RDW Standard Deviation 48.2 fL (36.4-46.3); Red Blood Count 4.47 M/uL (4.2-5.4); White Blood Count 5.83 K/uL (4.8-10.8)
[2019-03-25 08:41] LABS: BUN Creatinine Ratio 19.2 (10-20); Calcium 9.1 mg/dl (8.5-10.1); Creatinine Clr Calc Pharmacy 41.1 ml/min; Est GFR (African American) 52.5; Est GFR (Non-African American) 45.3; Potassium 4.2 mmol/L (3.5-5.1)
[2019-03-25] MEDS ORDERED: LIDOCAINE 5% 1 PATCH TD SCH (09:00)
[2019-03-25] MEDS: CITALOPRAM 20 MG TAB PO SCH (09:14)
[2019-03-25] MEDS: CARVEDILOL 25 MG TAB PO SCH ×2 (09:17→21:47)
[2019-03-25] MEDS: cephALEXin 500 MG CAP PO SCH ×2 (09:18→21:46)
[2019-03-25] MEDS: LOSARTAN POTASSIUM 50 MG TAB PO SCH (09:18)
[2019-03-25] MEDS: ASPIRIN 81 MG ECTAB PO SCH (09:18)
[2019-03-25] MEDS: methylPREDNISolone 4 MG TAB PO SCH ×3 (09:19→21:46)
[2019-03-25] MEDS: GABAPENTIN 300 MG CAP PO SCH ×2 (09:19→21:46)
[2019-03-25] MEDS: CILOSTAZOL 100 MG TAB PO SCH ×2 (09:20→21:46)
[2019-03-25 09:26] LABS: Partial Thromboplastin Ratio 0.9; Partial Thromboplastin Time 25.4 Seconds (21.0-31.0); Prothrombin Time 10.3 Seconds (9.0-12.0)
--- NOTE | 2019-03-25 10:29 | Orthopedic Consultation ---
Date of Consultation March 25, 2019 Assessment & Plan (1) Compression fracture of third lumbar vertebra: At this time would like to update imaging of the lumbar spine. We will review these images make further recommendations. Present on Admission?: Yes History of Present Illness Reason for Consultation: Back pain Attending Physician: Raheel Bullock MD History of Present Illness Male that presents with weeks of significant incapacitating back pain. I did have a discussion with her son on the phone while examining the patient. He states that she has been very limited with this pain. Patient denies any leg symptoms at this time. She is somewhat comfortable now that she is in bed and had some pain control. Allergies Allergy/AdvReac Type Severity Reaction Status Date / Time meperidine Allergy Verified 03/24/19 12:08 Penicillins Allergy Verified 03/24/19 12:08 tetracycline Allergy Verified 03/24/19 12:08 Tetracyclines Allergy Verified 03/24/19 12:08 N Allergy Unknown Unknown Uncoded 03/24/19 12:08 ANALG/ANTIPYRET Allergy Unknown Uncoded 03/24/19 12:08 ANTIBIOT Allergy Unknown Uncoded 03/24/19 12:08 OPIATEAGONISTS Allergy Unknown Uncoded 03/24/19 12:08 Home Medications Home Medications Medication Instructions Recorded Confirmed Type aspirin [Aspirin Low Dose] 81 mg PO QAM 03/24/19 03/24/19 History carvedilol 25 mg PO BID 03/24/19 03/24/19 History cephalexin 500 mg PO Q6H 03/24/19 03/24/19 History cilostazol 100 mg PO BID 03/24/19 03/24/19 History gabapentin 300 mg PO BID 03/24/19 03/24/19 History levothyroxine 75 mcg PO MOTUWETHFRSA 03/24/19 03/24/19 History losartan-hydrochlorothiazide 1 tab PO QAM 03/24/19 03/24/19 History methylprednisolone 4 mg PO UD 03/24/19 03/24/19 History rosuvastatin 40 mg PO HS 03/24/19 03/24/19 History Patient History Medical History Hypothyroidism (Chronic) HTN (hypertension) (Chronic) HLD (hyperlipidemia) (Chronic) PAD (peripheral artery disease) (Chronic) History of cardiac pacemaker (Chronic) History of complete heart block (Chronic) Status post pacemaker ~10 years ago Neuropathy (Chronic) History of right breast cancer (Chronic) Status post partial mastectomy with radiation Spinal stenosis (Chronic) Arthritis (Chronic) Surgical History History of partial mastectomy of right breast (Chronic) History of cholecystectomy (Chronic) History of hysterectomy with oophorectomy (Chronic) History of lumbar discectomy (Chronic) At age of 39 Family History Father Coronary heart disease Mother Stroke Sister Breast cancer Brother CHF (congestive heart failure) Social History Preferred Language: Mohawk Communication Ability: Effective 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 She is neurologically intact. Results & Data Vital Signs (Past 12 Hours) Vital Signs Temp Pulse Resp BP Pulse Ox 03/25/19 07:02 36.5 C 60 16 150/69 H 90 03/25/19 00:57 179/76 H 03/24/19 23:47 36.8 C 68 14 198/91 H 92 (1) Compression fracture of third lumbar vertebra Encounter type: initial encounter Qualified Code(s): S32.030A - Wedge compression fracture of third lumbar vertebra, initial encounter for closed fracture
[2019-03-25] MEDS: ENOXAPARIN INJ 30 MG/0.3 ML SYR SQ SCH (13:02)
--- NOTE | 2019-03-25 15:19 | Hospitalist Progress Note ---
Date of Service March 25, 2019 Assessment & Plan (1) Intractable low back pain: (2) Compression fracture of third lumbar vertebra: (3) Spinal stenosis: This is an 89-year-old female who has a significant past medical history of HTN, HLD, PAD, heart block status post PPM approximately 10 years ago, hypothyroidism, history of breast cancer status post right partial mastectomy in 1997, osteoporosis, arthritis, lumbar spinal stenosis who presents to [facility] ED secondary to intractable low back pain x1 week. -Patient had CT spine lumbar without contrast on 03/21/[address] [address] (Multilevel lateral recess and neuroforaminal stenosis extending from the L2 through the S1 levels secondary to desiccation and disc bulge and hypertrophic degenerative facet arthropathy. Mild chronic appearing compression fractures of L3 and L5. Severe osteoporosis. 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 on the left and 1.4 cm on the right.) -Patient presented to the ED at [facility] on 03/23/19 for per sistent low back pain for which she could not find relief when laying flat (Patient reports that shes has been taking NSAIDs 3 to 4 times a day and medrol pack at home without relief especially when she tries to lay flat and when she is in a position to try to stand up) -as per the radiology interpretation at [facility] CT Abdomen finding of Old L5 compression fracture with acute appearing mild L3 compression fracture with minimal retropulsion and incidental findings of extensive diverticulosis but no evidence of and again the bilateral renal artery aneurysms were again noted 1.7 cm on the left and 1.6 cm on the right. -patient started on scheduled acetaminophen 325 mg every 6 hours ; Tramadol 50mg q4hr prn for pain; oxycodone 5 mg q4 hour prn , prn IV narcotic, medrol dose pack, gabapentin 300 mg BID, Lidoderm patch and by 03/25/19 there are some improvements in pain control as patient able to lay flat on the bed -03/25/19: nurse reports patient not taking tramadol because it does not work for the pain, and taking the oxycodone often. will stop tramadol and stop oxycodone and change to oxycodone sustained release 10 mg q12 hours as scheduled medication, continue other medications as above -bowel regimen while on narcotic pain medications -continue PT/OT evaluations -patient being followed by orthopedic service, however patient is hesitant to do new back imaging because of back discomfort -have requested pain management consult if they are available to consider epidural injection for patient if no acute surgical interventions. (4) DAMON (acute kidney injury): acute kidney injury improving creatinine downtrended from 1.25 to 1.09 (5) UTI (urinary tract infection): Diagnosed at OSH on 03/22/19 Started on Keflex 500 mg 4 times daily, will complete course on 03/30/19 Urinalysis negative in ED (6) HTN (hypertension): Blood pressure elevated from pain -Continue carvedilol BID, losartan -resume home dose HCTZ 12.5 mg (7) HLD (hyperlipidemia): Continue statin (8) PAD (peripheral artery disease): Continue Pletal, ASA, Statin (9) History of cardiac pacemaker: hx of heart block s/p PPM approx 10 yrs ago Follows Cardiology in [place], [place] (10) Hypothyroidism: Continue levothyroxine (11) 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 Hypertension likely exacerbated by pain Subjective Patient able to lay down on the bed. She finds relief being able to do that since yesterday evening. She does not really want to move out of bed for any additional imaging studies. the back pain control is better today compared to yesterday. no bowel movement today. no abdomen pain. no chest pain. no shortness of breath, no vomiting Physical Exam Constitutional: WD/WN, vitals as above Eyes: PERRL, conjunctivae normal, anicteric sclerae EOM intact bilaterally ENMT: external ear and nose normal, oropharynx normal Neck: trachea midline, no thyromegaly normal visual inspection Respiratory: normal respiratory effort, lungs clear to auscultation Cardiovascular: RRR, no murmur, no edema Musculoskeletal: Head/Neck/Chest: normocephalic and head atraumatic Neurologic: PERRL, EOMI, accommodation nl, no face palsy, no dysarthria Psychiatric: A+Ox3, euthymic affect Results & Data Vital Signs (Past 12 Hours) Vital Signs Temp Pulse Resp BP Pulse Ox 03/25/19 07:02 36.5 C 60 16 150/69 H 90 (1) Compression fracture of third lumbar vertebra Encounter type: initial encounter Qualified Code(s): S32.030A - Wedge compression fracture of third lumbar vertebra, initial encounter for closed fracture
--- NOTE | 2019-03-25 18:54 | CT Scan Report ---
CT lumbar spine wo con CLINICAL HISTORY: 89 years-old Female presenting with back pain. TECHNIQUE: Multidetector CT of the lumbar spine was performed without the use of intravenous contrast . IV contrast: None. One or more dose lowering techniques were used consistent with the principles of ALARA (as low as reasonably achievable), including automatic exposure control, mA or kV adjustment t o individual patient size, and/or use of iterative reconstruction. COMPARISON: 10/20/2013. CT DOSE (mGy.cm): The estimated cumulative dose is 734.62 mGy.cm. FINDINGS: Operations Agent topogram: Pacemaker replacement right atrium and right ventricular apex in place. Straightening of normal lumbar lordosis new from prior. Mild to moderate anterior vertebral body heig ht loss (less than 50%) at L3 from prior. Only minimal retropulsion of the posterior superior cortex of the L3 vertebral body. No other vertebral body height loss. Vertebral bodies maintain normal align ment. Intervertebral disc height loss at L1-2 and L2-3. Multilevel degenerative changes noted with di sc bulges at every level though most severe at L1-2 and L2-3. Mild effacement of the ventral thecal s ac at L1-2 and moderate effacement at L2-3. Lesser degrees of spinal canal effacement in the lower staci mbar spine. Mild facet arthropathy and spondylitic spurring results in multilevel osseous neural fora cem narrowing noted on the right at L3-4 through L5-S1 and on the left from L2-3 through L5-S1. Pos tsurgical changes of the L5 spinous process suspected with possible prior laminectomy. Underlying osteopenia suspected. Visualized portion of the sacrum intact. Degenerative changes of the sacroiliac joints. Paraspinal musculature normal for age with fatty atrophy evident. Atherosclerosis . Mild infiltrative changes surround the L3 vertebral body suggesting edema and/or hemorrhage. IMPRESSION: 1. Mild to moderate compression fracture of L3 is acute appearing. Minimal retropulsion of the poste rior cortex of L3. Correlate with point tenderness. 2. Underlying osteopenia. 3. Multilevel degenerative changes with multilevel spinal canal stenosis greatest at L2-3. Multileve l osseous neural foraminal narrowing. Electronically signed by: Robin Tyler M.D. 03/25/2019 6:53 PM
--- NOTE | 2019-03-25 19:09 | XRay Report ---
XR lumbar spine 2-3V CLINICAL HISTORY: 89 years-old Female presenting with back pain. TECHNIQUE: Frontal, lateral, and coned and lateral views of the lumbar spine were obtained. COMPARISON: CT performed same day. FINDINGS: Moderate compression deformity of L3. This is new from the prior CT in 2013. Remaining vertebral bodi es demonstrate normal height. Intervertebral disks demonstrate minimal height loss at several levels. Prominent anterior and posterior osteophytosis. Multilevel osseous neural foraminal narrowing. Trace S-shaped scoliotic curvature. Underlying osteopenia. Atherosclerosis. Cholecystectomy clips. Multiple atherosclerotic foci may suggest underlying aneurysm s. Nonobstructive bowel gas pattern. IMPRESSION: 1. Compression fracture of L3, possibly acute. Correlate with point tenderness. 2. Multilevel degenerative changes with multilevel osseous neural foraminal narrowing. Electronically signed by: Robin Tyler M.D. 03/25/2019 7:07 PM
[2019-03-25] MEDS: OXYCODONE HCL 10 MG TABCR (OXYCONTIN) PO SCH ×2 (19:20→19:50)
[2019-03-25] MEDS: hydroCHLOROthiazide 25 MG TAB PO SCH (19:22)
[2019-03-25] MEDS: SENNA 8.6 MG TAB PO SCH (19:23)
[2019-03-25] MEDS: DOCUSATE SODIUM 100 MG CAP PO SCH (21:47)
[2019-03-25] MEDS: ROSUVASTATIN CALCIUM 20 MG TAB PO SCH (21:47)
[2019-03-26] MEDS: HYDROmorphone INJ 0.5 MG/0.5 ML SYR IV PRN (03:09)
[2019-03-26] MEDS: ACETAMINOPHEN 325 MG TAB PO SCH ×4 (05:11→23:26)
[2019-03-26] MEDS: OXYCODONE HCL 10 MG TABCR (OXYCONTIN) PO SCH ×2 (08:32→22:48)
[2019-03-26 08:45] LABS: Albumin Globulin Ratio 0.8 (0.9-2); BUN Creatinine Ratio 20.7 (10-20); Bilirubin,Total 0.5 mg/dl (0.2-1); Calcium 9.4 mg/dl (8.5-10.1); Creatinine Clr Calc Pharmacy 48.7 ml/min; Est GFR (African American) 64.4; Est GFR (Non-African American) 55.6
--- NOTE | 2019-03-26 09:11 | Orthopedic Progress Note ---
Date of Service March 26, 2019 Assessment & Plan (1) Compression fracture of third lumbar vertebra: This time her updated imaging confirms acute compression fracture of L3. I strongly suspect this is etiology of her symptom complex. And the significant limitation to the patient. We discussed possible surgical intervention. Would require a kyphoplasty of L3. Risk benefits pros cons alternatives outlined in detail. At this time we will tentatively plan for surgery tomorrow and she will be made n.p.o. after midnight. Present on Admission?: Yes Subjective Patient still complaining of significant axial back pain. She continues to deny any buttock or leg symptoms. She is getting some relief with the narcotic pain medication initiated yesterday. Physical Exam Physical Exam: On exam today she is ambulating with a walker. Is reasonable strength testing. Does have some pain to palpation percussion lumbar spine. Results & Data Vital Signs (Past 12 Hours) Vital Signs Temp Pulse Pulse Resp BP Pulse Ox 03/26/19 07:14 36.4 C L 60 16 186/80 H 96 03/26/19 00:00 36.5 C 72 14 152/84 H 92 (1) Compression fracture of third lumbar vertebra Encounter type: initial encounter Qualified Code(s): S32.030A - Wedge compression fracture of third lumbar vertebra, initial encounter for closed fracture
--- NOTE | 2019-03-26 09:17 | Hospitalist Progress Note ---
Date of Service March 26, 2019 Assessment & Plan (1) Intractable low back pain: (2) Compression fracture of third lumbar vertebra: (3) Spinal stenosis: This is an 89-year-old female who has a significant past medical history of HTN, HLD, PAD, heart block status post PPM approximately 10 years ago, hypothyroidism, history of breast cancer status post right partial mastectomy in 1997, osteoporosis, arthritis, lumbar spinal stenosis who presents to [facility] ED secondary to intractable low back pain x1 week. -Patient had CT spine lumbar without contrast on 03/21/[address] [address] (Multilevel lateral recess and neuroforaminal stenosis extending from the L2 through the S1 levels secondary to desiccation and disc bulge and hypertrophic degenerative facet arthropathy. Mild chronic appearing compression fractures of L3 and L5. Severe osteoporosis. 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 on the left and 1.4 cm on the right.) -Patient presented to the ED at [facility] on 03/23/19 for per sistent low back pain for which she could not find relief when laying flat (Patient reports that shes has been taking NSAIDs 3 to 4 times a day and medrol pack at home without relief especially when she tries to lay flat and when she is in a position to try to stand up) -as per the radiology interpretation at [facility] CT Abdomen finding of Old L5 compression fracture with acute appearing mild L3 compression fracture with minimal retropulsion and incidental findings of extensive diverticulosis but no evidence of and again the bilateral renal artery aneurysms were again noted 1.7 cm on the left and 1.6 cm on the right. -patient started on scheduled acetaminophen 325 mg every 6 hours ; Tramadol 50mg q4hr prn for pain; oxycodone 5 mg q4 hour prn , prn IV narcotic, medrol dose pack, gabapentin 300 mg BID, Lidoderm patch and by 03/25/19 there are some improvements in pain control as patient able to lay flat on the bed -03/25/19: nurse reports patient not taking tramadol because it does not work for the pain, and taking the oxycodone often. will stop tramadol and stop oxycodone and change to oxycodone sustained release 10 mg q12 hours as scheduled medication, continue other medications as above -bowel regimen while on narcotic pain medications -continue PT/OT evaluations -patient being followed by orthopedic service, and discussed tentative plans for back surgery tomorrow on 03/27/19 but Patient is somewhat indecisive. will have NPO after midnight in case of surgery -have requested pain management consult if they are available to consider epidural injection for patient if no acute surgical interventions. (4) DAMON (acute kidney injury): acute kidney injury improving creatinine downtrended from 1.25 to 0.92 (5) UTI (urinary tract infection): Diagnosed at OSH on 03/22/19 Started on Keflex 500 mg 4 times daily as outpatient and will complete course on 03/30/19 Urinalysis negative in ED on this hospital presentation (6) HTN (hypertension): Blood pressure elevated from pain -Continue carvedilol BID, losartan -will hold 03/27/19 AM HCTZ 12.5 for possible surgery on 03/27/19 (7) HLD (hyperlipidemia): Continue statin (8) PAD (peripheral artery disease): Continue Pletal, Statin will hold the 03/27/19 aspirin in case of surgery (9) History of cardiac pacemaker: hx of heart block s/p PPM approx 10 yrs ago Follows Cardiology in [place], [place] no chest pain (10) Hypothyroidism: Continue levothyroxine (11) 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 Hypertension likely exacerbated by pain Subjective Patient seen and examined at bedside. She was able to walk with rolling walker today. Dr. Presley from orthopedics at bedside and discussed tentative plans for back surgery tomorrow. Patient is somewhat indecisive on whether or not she would like to have surgery but she is ok right now for orthopedic team to make these plans for now such as NPO after midnight. the back pain appears to be better controlled today but patient reports pain still present patient has not had bowel movement. no chest pain. no shortness of breath. no abdomen pain. Physical Exam Constitutional: WD/WN, vitals as above Eyes: PERRL, conjunctivae normal, anicteric sclerae EOM intact bilaterally ENMT: external ear and nose normal, oropharynx normal Neck: trachea midline, no thyromegaly normal visual inspection Respiratory: normal respiratory effort, lungs clear to auscultation Cardiovascular: RRR, no murmur, no edema Gastrointestinal (Abdomen): normal bowel sounds, soft, nontender, no hepatosplenomegaly Musculoskeletal: Head/Neck/Chest: normocephalic and head atraumatic Neurologic: PERRL, EOMI, accommodation nl, no face palsy, no dysarthria Psychiatric: A+Ox3, euthymic affect Results & Data Vital Signs (Past 12 Hours) Vital Signs Temp Pulse Pulse Resp BP Pulse Ox 03/26/19 07:14 36.4 C L 60 16 186/80 H 96 03/26/19 00:00 36.5 C 72 14 152/84 H 92 (1) Compression fracture of third lumbar vertebra Encounter type: initial encounter Qualified Code(s): S32.030A - Wedge compression fracture of third lumbar vertebra, initial encounter for closed fracture
[2019-03-26] MEDS: ENOXAPARIN INJ 30 MG/0.3 ML SYR SQ SCH (10:31)
[2019-03-26] MEDS: ASPIRIN 81 MG ECTAB PO SCH (10:32)
[2019-03-26] MEDS: CITALOPRAM 20 MG TAB PO SCH (10:32)
[2019-03-26] MEDS: CARVEDILOL 25 MG TAB PO SCH ×2 (10:33→20:37)
[2019-03-26] MEDS: DOCUSATE SODIUM 100 MG CAP PO SCH ×2 (10:33→20:39)
[2019-03-26] MEDS: cephALEXin 500 MG CAP PO SCH ×2 (10:34→20:37)
[2019-03-26] MEDS: methylPREDNISolone 4 MG TAB PO SCH (10:34)
[2019-03-26] MEDS: LIDOCAINE 5% 1 PATCH TD SCH (10:35)
[2019-03-26] MEDS: hydroCHLOROthiazide 25 MG TAB PO SCH (10:36)
[2019-03-26] MEDS: LOSARTAN POTASSIUM 50 MG TAB PO SCH (10:36)
[2019-03-26] MEDS: CILOSTAZOL 100 MG TAB PO SCH ×2 (13:32→20:37)
[2019-03-26] MEDS: SENNA 8.6 MG TAB PO SCH (13:37)
[2019-03-26] MEDS: GABAPENTIN 300 MG CAP PO SCH ×2 (13:37→20:37)
[2019-03-26] MEDS ORDERED: LORazepam 0.25 MG/0.5 ML VIAL IV STA (14:27)
[2019-03-26] MEDS ORDERED: HydrALAZINE 10 MG TAB PO PRN (15:22)
[2019-03-26] MEDS ORDERED: AMLODIPINE BESYLATE 5 MG TAB PO ONE (15:45)
[2019-03-26] MEDS: ROSUVASTATIN CALCIUM 20 MG TAB PO SCH (20:38)
[2019-03-27] MEDS ORDERED: SODIUM CHLORIDE 0.9% 1000ML 1,000 ML IV SCH (00:30)
[2019-03-27] MEDS: ACETAMINOPHEN 325 MG TAB PO SCH ×4 (04:54→21:39)
[2019-03-27] MEDS: LEVOTHYROXINE SODIUM 75 MCG TABLET PO SCH (06:27)
[2019-03-27 07:40] LABS: Hematocrit (blood only) 37.1 % (37-47); Hemoglobin 12.9 g/dL (12.0-16.0); Mean Corpuscular Hgb Conc 34.8 g/dL (32-36); Mean Platelet Volume 10.1 fL (7.4-10.4); Platelet Count 191 K/uL (130-400); RDW Coefficient of Variation 13.6 % (11.5-14.5); RDW Standard Deviation 44.1 fL (36.4-46.3); Red Blood Count 4.17 M/uL (4.2-5.4); White Blood Count 5.24 K/uL (4.8-10.8)
[2019-03-27] MEDS: LOSARTAN POTASSIUM 50 MG TAB PO SCH (08:02)
[2019-03-27] MEDS: CARVEDILOL 25 MG TAB PO SCH ×2 (08:03→21:38)
[2019-03-27] MEDS: DOCUSATE SODIUM 100 MG CAP PO SCH ×2 (08:03→21:38)
[2019-03-27] MEDS: cephALEXin 500 MG CAP PO SCH ×2 (08:04→21:39)
[2019-03-27] MEDS: hydroCHLOROthiazide 25 MG TAB PO SCH (08:04)
[2019-03-27] MEDS: methylPREDNISolone 4 MG TAB PO SCH (08:05)
[2019-03-27] MEDS: AMLODIPINE BESYLATE 5 MG TAB PO SCH (08:05)
[2019-03-27] MEDS: GABAPENTIN 300 MG CAP PO SCH ×2 (08:05→21:39)
[2019-03-27] MEDS: SENNA 8.6 MG TAB PO SCH (08:06)
[2019-03-27] MEDS: CILOSTAZOL 100 MG TAB PO SCH ×2 (08:06→21:39)
[2019-03-27] MEDS: CITALOPRAM 20 MG TAB PO SCH (08:07)
[2019-03-27] MEDS: OXYCODONE HCL 10 MG TABCR (OXYCONTIN) PO SCH (08:18)
[2019-03-27] MEDS: LIDOCAINE 5% 1 PATCH TD SCH (08:18)
--- NOTE | 2019-03-27 10:18 | Pain Management Consultation ---
Date of Consultation March 27, 2019 Assessment & Plan (1) Compression fracture of third lumbar vertebra: 1. I spent approximately 45 minutes with patient discussing compression fractures in general and possible treatment regimens. Ultimately, it this the decision of the patient to determine if her pain is adequately controlled with oral narcotics and bracing versus recommendation for kyphoplasty. At this point she states that she does not feel she will be able to return home and has sig nificant reservations about long-term utilization of narcotics. I told her that I would inform Dr. Presley that she had additional questions prior to the procedure being performed. 2. Recommend continuation of oxycodone 10 mg p.o. q. 6 as needed pain and Lidoderm patches. 3. Consultation request was made for orthotics for LSO brace placement. 4. I spoke with the patient about possibly needing additional support in her home should she return there directly after this hospitalization. 5. The patient is not a candidate for epidural steroid injections and the other interventional pain management at this time. 6. Thank you for this consultation. Encounter type: initial encounter Qualified Code(s): S32.030A - Wedge compression fracture of third lumbar vertebra, initial encounter for closed fracture (2) History of lumbar discectomy: (3) Intractable low back pain: (4) UTI (urinary tract infection): History of Present Illness Attending Physician: Raheel Bullock MD History of Present Illness 89-year-old female with acute mild to moderate L3 compression fracture with 100% axial low back pain from L3- approximately 5 worse with standing for greater than 3 to 5 minutes and walking. Patient states that pain is dull and aching only ranging at 3 out of 10 at rest. She reports that with activity pain escalates to about 8 out of 10 (from the best that I can tell from the patient she is slightly unsure of the number). She states that pain is prohibitive of her from getting out of bed independently and moving around her room. She does note that she was using a cane and a walker at times prior to this hospitalization. She denies any trauma at this time. She denies any bowel or bladder incontinence, change in motor weakness (patient states she was slightly deconditioned prior to hospitalization and feels that her strength in the lower extremities is equivalent to prehospitalization), loss of sensation, footdrop, fever, or chills. The patient has been utilizing around 2 tablets of oxycodone 10 mg strength with fairly adequate pain control. She has utilized 1 dose of IV hydromorphone 0.25 mg for breakthrough pain control. Patient states she lives with her 90-year-old and has a son nearby. She states that while she is not the caregiver for her she is concerned about burning him with assisting her for activities of daily living. She does state that she has housecleaning help once a week and that her is able to drive and secure food and other items of necessity. The patient is currently n.p.o. for a kyphoplasty to be performed by Dr. Presley today. She has multiple questions about this on my interview. Review of systems: Constitutional: Negative for fever, chills, sweats Eyes: Negative for eye pain, photophobia, drainage Ear, nose, mouth, throat: Negative for ear pain, nasal congestion, mouth lesions, change in voice Respiratory: Negative for wheezing, sputum production Cardiovascular: Negative for chest pain, palpitations, calf pain Gastrointestinal: Negative for abdominal pain, belching, bloating Genitourinary: Negative for dysuria, urinary incontinence, urinary urgency Musculoskeletal: Negative for deformities Integumentary: Negative for nail changes, skin yellowing, pruritus Neurological: Negative for abnormal speech, seizure type activity Pain Assessment Full Body Front + Back: 1. [facility] Combined Pain Scale: 3-Mild - Interferes with pleasures of life. Stops some activities Pain scale - at its best (0-10): 3 Pain scale - at its worst (0-10): 8 Allergies Allergy/AdvReac Type Severity Reaction Status Date / Time meperidine Allergy Verified 03/24/19 12:08 Penicillins Allergy Verified 03/24/19 12:08 tetracycline Allergy Verified 03/24/19 12:08 Tetracyclines Allergy Verified 03/24/19 12:08 N Allergy Unknown Unknown Uncoded 03/24/19 12:08 ANALG/ANTIPYRET Allergy Unknown Uncoded 03/24/19 12:08 ANTIBIOT Allergy Unknown Uncoded 03/24/19 12:08 OPIATEAGONISTS Allergy Unknown Uncoded 03/24/19 12:08 Home Medications Home Medications Medication Instructions Recorded Confirmed Type aspirin [Aspirin Low Dose] 81 mg PO QAM 03/24/19 03/24/19 History carvedilol 25 mg PO BID 03/24/19 03/24/19 History cephalexin 500 mg PO Q6H 03/24/19 03/24/19 History cilostazol 100 mg PO BID 03/24/19 03/24/19 History gabapentin 300 mg PO BID 03/24/19 03/24/19 History levothyroxine 75 mcg PO MOTUWETHFRSA 03/24/19 03/24/19 History losartan-hydrochlorothiazide 1 tab PO QAM 03/24/19 03/24/19 History methylprednisolone 4 mg PO UD 03/24/19 03/24/19 History rosuvastatin 40 mg PO HS 03/24/19 03/24/19 History Pain History Pain Intensity Pain scale - at its best (0-10): 3 Pain scale - at its worst (0-10): 8 Patient History Medical History Hypothyroidism (Chronic) HTN (hypertension) (Chronic) HLD (hyperlipidemia) (Chronic) PAD (peripheral artery disease) (Chronic) History of cardiac pacemaker (Chronic) History of complete heart block (Chronic) Status post pacemaker ~10 years ago Neuropathy (Chronic) History of right breast cancer (Chronic) Status post partial mastectomy with radiation Spinal stenosis (Chronic) Arthritis (Chronic) Surgical History History of partial mastectomy of right breast (Chronic) History of cholecystectomy (Chronic) History of hysterectomy with oophorectomy (Chronic) History of lumbar discectomy (Chronic) At age of 39 Family History Father Coronary heart disease Mother Stroke Sister Breast cancer Brother CHF (congestive heart failure) Social History Preferred Language: Syriac Communication Ability: Effective Appraisal Manager Required: No Beliefs That Will Affect Care: None marital status: Current Living Situation: Spouse Other Information That Helps Us Care for You: No other: Ambulates with cane Feels Safe at Home: Yes Safety Concerns: Feels Safe At This Time Smoking Status: Former smoker Do You Dip or Chew Tobacco: No Smoking End Date: 50 years ago Second Hand Exposure: No Tobacco Cessation Education Requested by Patient: No Hx Alcohol Use: No Hx Substance Use: No Physical Exam Physical Exam: Constitutional: Well-developed, well-nourished, healthy- appearing, normal weight Psych: Awake, alert, and oriented 3 with normal affect and mood. Patient is slightly slow to answer question but does appear to have grossly intact recent memory. Eyes: Pupils are equally round and reactive to light with normal size pupils, eyelids appear normal Ear, nose, mouth, and throat: Moist nasal and oral membranes, lips and tongues appear normal, no external ear abnormalities are noted Neck: The trachea is midline Respiratory: Normal respiratory effort without distress, no audible wheezes or rhonchi CV: Normal S1 and S2 Chest: Deferred Musculoskeletal: Head is normocephalic and atraumatic, gait was slowed and slightly unsteady when I observed her walking with a 4 wheeled rolling walker Cervical: Lordotic curve: Normal Range of motion is grossly normal with extension, flexion, side-bending, rotation Thoracic: Kyphotic curve: Normal Range of motion is grossly normal with extension, flexion, side-bending, rotation Tenderness: Nontender over the axial midline Lumbar: Lordotic curve: Loss of lumbar lordosis Range of motion is decreased in all planes to a significant degree secondary to pain Tenderness: Moderately tender over the axial midline from L2-5 Facet provocation: Difficult to assess secondary to pain Straight leg raise: Negative bilaterally not worsened with Achilles stretch Step-off injuries: None Strength: Strength is equal bilaterally with 4+ out of 5 strength in all planes Sensation of lower extremities: Intact bilaterally Deep tendon reflexes: Rated at 1+ in bilateral L4 and S1 Myofascial spasm: Mild spasm noted over lumbar paravertebral musculature right greater than left Greater trochanters: Nontender bilaterally Sacroiliac joints: Nontender bilaterally Pathologic reflexes noted: None Skin: No rashes, lesions, ulcers, or induration noted Neuro: No nystagmus noted, the tongue is midline, the patient is able to rotate their head bilaterally : Deferred Results Diagnostic Review CT: non enhanced, reports reviewed and findings discussed with patient CT Findings: [place], [place] [phone] CT Scan Report Patient: ONEIL GRAFFIAAdmjose r Date: 03/24/19 MR#: [id number]: [address] Acct ID:[id number]: Date: [address] [place] [address] Zip: [place] [address] Age: 89Location: 3W Sex: F Room/Bed: [facility] Att Phy: Raheel Bullock, MDDiagnosis: L3 COMPRESSION FX; LOW BACK PAIN Claire Phy: Ailyn Stevens M.D.Service Date: 03/25/19 Fam Phy: Interpreting Phy: Robin Tyler MD Admit Phy: Raheel Bullock MD Ordering Phy: Jackson Presley D.O. cc: ~ CT lumbar spine wo con CLINICAL HISTORY: 89 years-old Female presenting with back pain. TECHNIQUE: Multidetector CT of the lumbar spine was performed without the use of intravenous contrast. IV contrast: None. One or more dose lowering techniques were used consistent with the principles of ALARA (as low as reasonably achievable), including automatic exposure control, mA or kV adjustment to individual patient size, and/or use of iterative reconstruction. COMPARISON: 10/20/2013. CT DOSE (mGy.cm): The estimated cumulative dose is 734.62 mGy.cm. FINDINGS: Snap Shearer topogram: Pacemaker replacement right atrium and right ventricular apex in place. Straightening of normal lumbar lordosis new from prior. Mild to moderate anterior vertebral body height loss (less than 50%) at L3 from prior. Only minimal retropulsion of the posterior superior cortex of the L3 vertebral body. No other vertebral body height loss. Vertebral bodies maintain normal alignment. Intervertebral disc height loss at L1-2 and L2-3. Multilevel degenerative changes noted with disc bulges at every level though most severe at L1-2 and L2- 3. Mild effacement of the ventral thecal sac at L1-2 and moderate effacement at L2-3. Lesser degrees of spinal canal effacement in the lower lumbar spine. Mild facet arthropathy and spondylitic spurring results in multilevel osseous neural foraminal narrowing noted on the right at L3-4 through L5-S1 and on the left from L2-3 through L5-S1. Postsurgical changes of the L5 spinous process suspected with possible prior laminectomy. Underlying osteopenia suspected. Visualized portion of the sacrum intact. Degenerative changes of the sacroiliac joints. Paraspinal musculature normal for age with fatty atrophy evident. Atherosclerosis. Mild infiltrative changes surround the L3 vertebral body suggesting edema and/or hemorrhage. IMPRESSION: 1. Mild to moderate compression fracture of L3 is acute appearing. Minimal retropulsion of the posterior cortex of L3. Correlate with point tenderness. 2. Underlying osteopenia. 3. Multilevel degenerative changes with multilevel spinal canal stenosis greatest at L2-3. Multilevel osseous neural foraminal narrowing. Radiology: reports reviewed and findings discussed with patient Radiology Findings: Patient: KARRI GRAFFdmit Date: 03/24/19 MR#: [id number]: [address] Acct ID:[id number]: Date: 1930[facility] Zip: [place] [address] Age: 89Location: 3W Sex: F Room/Bed: [facility] Att Phy: Raheel Bullock, MDDiagnosis: L3 COMPRESSION FX; LOW BACK PAIN Claire Phy: Ailyn Stevens M.D.Service Date: 03/25/19 Fam Phy: Interpreting Phy: Robin Tyler MD Admit Phy: Raheel Bullock MD Ordering Phy: Jackson Presley D.O. cc: ~ XR lumbar spine 2-3V CLINICAL HISTORY: 89 years-old Female presenting with back pain. TECHNIQUE: Frontal, lateral, and coned and lateral views of the lumbar spine were obtained. COMPARISON: CT performed same day. FINDINGS: Moderate compression deformity of L3. This is new from the prior CT in 2014. Remaining vertebral bodies demonstrate normal height. Intervertebral disks demonstrate minimal height loss at several levels. Prominent anterior and posterior osteophytosis. Multilevel osseous neural foraminal narrowing. Trace S- shaped scoliotic curvature. Underlying osteopenia. Atherosclerosis. Cholecystectomy clips. Multiple atherosclerotic foci may suggest underlying aneurysms. Nonobstructive bowel gas pattern. IMPRESSION: 1. Compression fracture of L3, possibly acute. Correlate with point tenderness. 2. Multilevel degenerative changes with multilevel osseous neural foraminal narrowing.
[2019-03-27] MEDS ORDERED: fentaNYL citrate 100 MCG/2 ML VIAL ONE (15:44)
--- NOTE | 2019-03-27 15:49 | History & Physical Bridge Note ---
Date of Service March 27, 2019 History & Physical Bridge Note I have examined the patient, reviewed the History & Physical and in the interval since the performance of the History & Physical I have noted the following changes of clinical significance: no changes noted
[2019-03-27] MEDS ORDERED: CONRAY 60% 50 ML VIAL ONE (16:05)
[2019-03-27] MEDS ORDERED: BUPIVACAINE/EPINEPHRINE 0.5% MPF 1:200,000 30 ML VIAL ONE (16:05)
[2019-03-27] MEDS ORDERED: ATROPINE SULFATE 0.1 MG/ML 10ML SYR IV PRN (16:21)
[2019-03-27] MEDS ORDERED: ePHEDrine sulfate 50 MG/ML AMP IV PRN (16:21)
[2019-03-27] MEDS ORDERED: ONDANSETRON INJ 2 MG/ML 2 ML VIAL IV PRN (16:21)
--- NOTE | 2019-03-27 16:21 | Anesthesiology Consultation ---
Date of Service March 27, 2019 Assessment & Plan (1) Encounter for pre-operative examination: Chart Review Chart Review: Acceptable Risk for Surgery and Patient NOT seen in Pre Admission Testing Consults Requested medical & cardiac Pulmonary ASA ASA3 Proposed Anesthesia Anesthesia Type: General Risk / Benefits Reviewed With: PT / POA / Parent / Guardian, Accepts Plan and Informed Consent Obtained History Surgery Operation Date: 03/27/19 09:20 Proposed Procedures p Kyphoplasty - Jackson Presley, Height/Weight Height: 5 ft 7 in Weight: 90 kg Allergies Allergy/AdvReac Type Severity Reaction Status Date / Time meperidine Allergy Verified 03/24/19 12:08 Penicillins Allergy Verified 03/24/19 12:08 tetracycline Allergy Verified 03/24/19 12:08 Tetracyclines Allergy Verified 03/24/19 12:08 N Allergy Unknown Unknown Uncoded 03/24/19 12:08 ANALG/ANTIPYRET Allergy Unknown Uncoded 03/24/19 12:08 ANTIBIOT Allergy Unknown Uncoded 03/24/19 12:08 OPIATEAGONISTS Allergy Unknown Uncoded 03/24/19 12:08 Medications Home Medications Medication Instructions Recorded Confirmed Last Taken aspirin [Aspirin Low Dose] 81 mg PO QAM 03/24/19 03/24/19 03/24/19 carvedilol 25 mg PO BID 03/24/19 03/24/19 03/24/19 cephalexin 500 mg PO Q6H 03/24/19 03/24/19 03/24/19 cilostazol 100 mg PO BID 03/24/19 03/24/19 03/23/19 gabapentin 300 mg PO BID 03/24/19 03/24/19 03/24/19 levothyroxine 75 mcg PO MOTUWETHFRSA 03/24/19 03/24/19 03/24/19 losartan-hydrochlorothiazide 1 tab PO QAM 03/24/19 03/24/19 03/24/19 methylprednisolone 4 mg PO UD 03/24/19 03/24/19 03/24/19 rosuvastatin 40 mg PO HS 03/24/19 03/24/19 03/23/19 Active Medications Generic Name Dose Route Start Last Admin Trade Name Freq PRN Reason Stop Dose Admin Acetaminophen 325 mg 03/24/19 17:00 03/27/19 10:52 Tylenol PO 04/23/19 16:59 325 mg Q6H KEYLA Administration Amlodipine Besylate 10 mg 03/27/19 09:00 03/27/19 08:05 Norvasc PO 04/26/19 08:59 10 mg QAM KEYLA Administration Aspirin 81 mg 03/25/19 09:00 03/26/19 10:32 Ecotrin Ectab PO 04/24/19 08:59 Not Given QAM KEYLA Carvedilol 25 mg 03/24/19 21:00 03/27/19 08:03 Coreg PO 04/23/19 20:59 25 mg BID KEYLA Administration Cephalexin HCl 500 mg 03/24/19 21:00 03/27/19 08:04 Keflex PO 04/01/19 20:59 500 mg Q12H KEYLA Administration Protocol Cilostazol 100 mg 03/24/19 21:00 03/27/19 08:06 Pletal PO 04/23/19 20:59 100 mg BID KEYLA Administration Citalopram Hydrobromide 10 mg 03/25/19 09:00 03/27/19 08:07 Celexa PO 04/24/19 08:59 10 mg DAILY KEYLA Administration Docusate Sodium 100 mg 03/25/19 21:00 03/27/19 08:03 Colace PO 04/24/19 20:59 100 mg BID KEYLA Administration Enoxaparin Sodium 30 mg 03/25/19 10:00 03/26/19 10:31 Lovenox SQ 04/24/19 09:59 Not Given QAM KEYLA Gabapentin 300 mg 03/24/19 21:00 03/27/19 08:05 Neurontin PO 04/23/19 20:59 300 mg BID KEYLA Administration Hydrochlorothiazide 12.5 mg 03/25/19 15:45 03/27/19 08:04 Hctz PO 04/24/19 15:44 12.5 mg QAM KEYLA Administration Hydromorphone HCl 0.25 mg 03/25/19 15:59 03/26/19 03:09 Dilaudid IV 04/07/19 23:56 0.25 mg Q6H PRN Administration Pain Levothyroxine Sodium 75 mcg 03/25/19 06:30 03/27/19 06:27 Synthroid PO 04/24/19 06:29 75 mcg [id number]@0630 KEYLA Administration Lidocaine 1 patch 03/26/19 09:00 03/27/19 08:18 Lidoderm 5% TD 04/25/19 08:59 1 patch QAM KEYLA Administration Losartan Potassium 50 mg 03/25/19 09:00 03/27/19 08:02 Cozaar PO 04/24/19 08:59 50 mg QAM KEYLA Administration Magnesium Hydroxide 30 ml 03/24/19 16:31 03/26/19 13:38 Milk Of Magnesia PO 04/23/19 16:30 30 ml Q6H PRN Administration Constipation Methylprednisolone 4 mg 03/24/19 17:00 03/27/19 08:05 Medrol PO 03/27/19 16:59 4 mg DAILY KEYLA Administration Taper Protocol Miscellaneous 1 ea 03/24/19 21:00 03/26/19 19:56 Remove Lidoderm Patch N/A 04/23/19 20:59 1 ea DAILY@2100 KEYLA Administration Oxycodone HCl 10 mg 03/25/19 16:00 03/27/19 08:18 Oxycontin PO 04/08/19 15:59 10 mg Q12H KEYLA Administration Rosuvastatin Calcium 40 mg 03/24/19 21:00 03/26/19 20:38 Crestor PO 04/23/19 20:59 40 mg HS KEYLA Administration Sennosides 8.6 mg 03/25/19 16:00 03/27/19 08:06 Senokot PO 04/24/19 15:59 8.6 mg QAM KEYLA Administration NPO Date Last Intake of Fluids: 03/27/19 Time Last Intake of Fluids: 10:52 Last Intake of Fluids Comment: sips with meds Date Last Intake of Solids: 03/26/19 Time Last Intake of Solids: 17:30 Past Medical History Medical History Hypothyroidism (Chronic) HTN (hypertension) (Chronic) HLD (hyperlipidemia) (Chronic) PAD (peripheral artery disease) (Chronic) History of cardiac pacemaker (Chronic) History of complete heart block (Chronic) Status post pacemaker ~10 years ago Neuropathy (Chronic) History of right breast cancer (Chronic) Status post partial mastectomy with radiation Spinal stenosis (Chronic) Arthritis (Chronic) Exercise / Class Metabolic Activity III < 4 Walking/Shop/Light housework Past Family History Family History Father Coronary heart disease Mother Stroke Sister Breast cancer Brother CHF (congestive heart failure) Past Surgical History Surgical History History of partial mastectomy of right breast (Chronic) History of cholecystectomy (Chronic) History of hysterectomy with oophorectomy (Chronic) History of lumbar discectomy (Chronic) At age of 39 Past Anesthesia History No Hx of Anesthesia Complications and No Family Hx of Anesthesia Complications History of PONV No Hx of PONV and No Hx of Motion Sickness Social History Smoking Status: Former smoker Do You Dip or Chew Tobacco: No Smoking End Date: 50 years ago Hx Alcohol Use: No Alcohol type: beer Hx Substance Use: No Physical Exam Vital Signs Last Vital Signs Temp 36.4 C L 03/27/19 15:22 Pulse 60 03/27/19 15:25 Resp 18 03/27/19 15:22 BP 152/99 H 03/27/19 15:25 Pulse Ox 95 03/27/19 15:22 Constitutional + obese ENMT Mouth: no dentition abnormality Thyromental Distance: > or= 3.5 Finger Breadths Mallampati Class: III Neck normal visual inspection Respiratory normal respiratory effort Auscultation: lungs clear to auscultation bilaterally Cardiovascular Rate/Rhythm: regular rate and regular rhythm Chest (Breasts) Chest: + pacemaker Psychiatric Orientation: alert Testing Laboratory Results 03/27/19 07:16 03/26/19 07:48 PT 10.3 Seconds (9.0-12.0) 03/25/19 08:56 INR 1.0 (0.9-1.1) 03/25/19 08:56 APTT 25.4 Seconds (21.0-31.0) 03/25/19 08:56 Urine Color Yellow 03/24/19 11:10 Urine Appearance Clear (Clear) 03/24/19 11:10 Urine pH 7.5 (4.5-7.5) 03/24/19 11:10 Ur Specific [place] 1.015 (1.000-1.030) 03/24/19 11:10 Urine Protein 1+ (Negative) H 03/24/19 11:10 Urine Glucose (UA) Negative (Negative) 03/24/19 11:10 Urine Ketones Negative (Negative) 03/24/19 11:10 Urine Nitrite Negative (Negative) 03/24/19 11:10 Ur Leukocyte Esterase Negative (Negative) 03/24/19 11:10 Urine WBC (Auto) 1-5 /hpf (0-5) 03/24/19 11:10 Urine RBC (Auto) 0-4 /hpf (0-4) 03/24/19 11:10 U Hyaline Cast (Auto) 1-5 /lpf (0-5) 03/24/19 11:10 U Epithel Cells (Auto) >30 /lpf (0-5) H 03/24/19 11:10 Urine Bacteria (Auto) Negative (Negative) 03/24/19 11:10
[2019-03-27] MEDS ORDERED: LIDOCAINE HCL 2% 2 ML VIAL/AMP(20MG/ML) INFIL ONE (16:59)
[2019-03-27] MEDS ORDERED: NEOSTIGMINE METHYLSULFATE 1 MG/ML 10ML VIAL ONE (16:59)
[2019-03-27] MEDS ORDERED: GLYCOPYRROLATE 0.2 MG/ML VIAL ONE (16:59)
[2019-03-27] MEDS ORDERED: DEXAMETHASONE SOD INJ 4 MG/ML VIAL ONE (16:59)
[2019-03-27] MEDS ORDERED: PROPOFOL IV EMULSION 10 MG/ML 20 ML VIAL IV ONE (16:59)
[2019-03-27] MEDS ORDERED: ONDANSETRON INJ 2 MG/ML 2 ML VIAL ONE (16:59)
[2019-03-27] MEDS ORDERED: PHENYLEPHRINE 100MCG/ML 5ML SYR ONE (17:00)
[2019-03-27] MEDS ORDERED: ePHEDrine sulfate 50 MG/ML SYR ONE (17:00)
[2019-03-27] MEDS ORDERED: CEFAZOLIN 250 MG/ML 1 GM VIAL ONE (17:00)
[2019-03-27] MEDS ORDERED: CEFAZOLIN 2000MG 2,000 MG/15 ML SYR IV ONE (17:02)
--- NOTE | 2019-03-27 17:29 | Operative Report ---
Post Operative Report Pre & Post Diagnosis Operation Date: 03/27/19 09:20 Pre-Op Diagnosis: L3 COMPRESSION FRACTURE. Post-Op Diagnosis: L3 COMPRESSION FRACTURE. Procedure Operation Date: 03/27/19 09:20 Actual Procedures #1 kyphoplasty L3. #2 biopsy of L3 vertebral body Surgeon Jackson Presley DO Brass Reclaimer None Estimated Blood Loss 5 Findings Consistent with Post-Op Diagnosis Specimens Biopsy L3 vertebral body Indications This is a very pleasant 89-year-old female with 2 weeks of significant incapacitating back pain. She is been unable to undergo her activities of daily living secondary to discomfort. Subsequently she like to undergo the above- mentioned procedure. Description of Procedure Patient was met with identified and informed consent obtained. She was then taken to the operative suite underwent intubation placed in a prone position on the Guero table the chest padded bolsters. The thoracolumbar spine was then prepped and draped in a normal sterile fashion. The assistance of fluoroscopy in AP and lateral planes identified the L3 vertebral body. 2 small incisions were placed just lateral to the pedicles posteriorly. Kyphon working cannulas were then placed by way of a transpedicular approach into the L3 vertebral body. I verified my position with fluoroscopy. 2 core biopsies were then obtained of the L3 vertebral body. I placed 220 mm Kyphon balloons within the vertebral body. They were sequentially inflated with fluoroscopic visualization. They were subsequently removed in approximately 9 cc of Kyphon cement injected with fluoroscopic visualization demonstrating excellent fill and interdigitation within the bony fragments. The working apparatus was then removed the small incisions closed with subcutaneous Monocryl in a sterile dressing placed. Was patient was then awakened and taken to PACU in stable condition. I attest to the content of the Intraoperative Record and any orders documented therein. Any exceptions are noted below.
[2019-03-27] MEDS: fentaNYL citrate 100 MCG/2 ML VIAL IV PRN ×2 (18:00→18:05)
--- NOTE | 2019-03-27 18:21 | Anesthesiology Progress Note ---
Date of Service March 27, 2019 Anesthesia Post Procedure Vital Signs Vital Signs: Temp Pulse Pulse Pulse Resp BP BP 03/27/19 18:10 60 12 147/62 H 03/27/19 18:00 60 14 160/65 H 03/27/19 17:50 60 12 157/65 H 03/27/19 17:43 36.2 C L 64 12 167/72 H 03/27/19 15:25 60 152/99 H 03/27/19 15:22 36.4 C L 65 18 174/75 H 03/27/19 14:55 36.3 C L 62 16 164/72 H 03/27/19 11:55 36.3 C L 60 16 132/68 03/27/19 07:46 36.7 C 66 16 142/88 H 03/27/19 00:07 36.5 C 60 14 159/68 H 03/26/19 20:34 73 149/75 H Pulse Ox 03/27/19 18:10 97 03/27/19 18:00 99 03/27/19 17:50 99 03/27/19 17:43 99 03/27/19 15:25 03/27/19 15:22 95 03/27/19 14:55 94 03/27/19 11:55 93 03/27/19 07:46 92 03/27/19 00:07 94 03/26/19 20:34 Pain Intensity Bilateral Back: Pain Intensity: 5 Transfer of Care Handoff Completed per policy Notes Mental Status: alert / awake / arousable Patient Amnestic to Procedure: Yes Nausea / Vomiting: adequately controlled Pain: adequately controlled Airway Patency, RR, SpO2: stable & adequate BP & HR: stable & adequate Hydration State: stable & adequate Anesthetic Complications: no major complications apparent
--- NOTE | 2019-03-27 18:27 | Fluoroscopy Report ---
[place] lumbar spine 2-3V CLINICAL HISTORY: L3 kyphoplasty. COMPARISON STUDY: Lumbar spine CT and lumbar spine radiographs March 25, 2019. FLUOROSCOPY TIME: 163 seconds. FLUOROSCOPIC IMAGES: 2. FINDINGS: These images demonstrate radiodense material within the L3 vertebral body. IMPRESSION: Fluoroscopic images demonstrating L3 kyphoplasty. Electronically signed by: Quan Duran M.D. 03/27/2019 6:25 PM
--- NOTE | 2019-03-27 18:51 | Hospitalist Progress Note ---
Date of Service March 27, 2019 Assessment & Plan (1) Intractable low back pain: (2) Compression fracture of third lumbar vertebra: (3) Spinal stenosis: This is an 89-year-old female who has a significant past medical history of HTN, HLD, PAD, heart block status post PPM approximately 10 years ago, hypothyroidism, history of breast cancer status post right partial mastectomy in 1997, osteoporosis, arthritis, lumbar spinal stenosis who presents to [facility] ED secondary to intractable low back pain x1 week. -Patient had CT spine lumbar without contrast on 03/21/[address] [id number] (Multilevel lateral recess and neuroforaminal stenosis extending from the L2 through the S1 levels secondary to desiccation and disc bulge and hypertrophic degenerative facet arthropathy. Mild chronic appearing compression fractures of L3 and L5. Severe osteoporosis. 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 on the left and 1.4 cm on the right.) -Patient presented to the ED at [facility] on 03/23/19 for per sistent low back pain for which she could not find relief when laying flat (Patient reports that shes has been taking NSAIDs 3 to 4 times a day and medrol pack at home without relief especially when she tries to lay flat and when she is in a position to try to stand up) -as per the radiology interpretation at [facility] CT Abdomen finding of Old L5 compression fracture with acute appearing mild L3 compression fracture with minimal retropulsion and incidental findings of extensive diverticulosis but no evidence of and again the bilateral renal artery aneurysms were again noted 1.7 cm on the left and 1.6 cm on the right. -patient started on scheduled acetaminophen 325 mg every 6 hours ; Tramadol 50mg q4hr prn for pain; oxycodone 5 mg q4 hour prn , prn IV narcotic, medrol dose pack, gabapentin 300 mg BID, Lidoderm patch and by 03/25/19 there are some improvements in pain control as patient able to lay flat on the bed -03/25/19: nurse reports patient not taking tramadol because it does not work for the pain, and taking the oxycodone often. will stop tramadol and stop oxycodone and change to oxycodone sustained release 10 mg q12 hours as scheduled medication, continue other medications as above -bowel regimen while on narcotic pain medications -continue PT/OT evaluations -Patient on 03/27/19 had as per the orthopedic operative report kyphoplasty L3 and biopsy of L3 vertebral body for post-Op Diagnosis of L3 COMPRESSION FRACTURE. -Orthopedic surgeon Dr. Presley recommends to titrate down the oxycodone sustained release as he believes that patient's general level of back pain will improve from surgical intervention (4) DAMON (acute kidney injury): acute kidney injury has resolved from initial presentation continue to trend renal function after the surgery (5) UTI (urinary tract infection): Diagnosed at OSH on 03/22/19 Started on Keflex 500 mg 4 times daily as outpatient and will complete course on 03/30/19 Urinalysis negative in ED on this hospital presentation (6) HTN (hypertension): Blood pressure elevated from pain -Continue carvedilol BID, losartan -have held 03/27/19 AM HCTZ 12.5 because of surgery (7) HLD (hyperlipidemia): Continue statin (8) PAD (peripheral artery disease): Continue Pletal, Statin have held the 03/27/19 aspirin because of surgery (9) History of cardiac pacemaker: hx of heart block s/p PPM approx 10 yrs ago Follows Cardiology in [place], [place] no chest pain (10) Hypothyroidism: Continue levothyroxine (11) Renal artery aneurysm: Incidental finding on CT 1.7 cm left, 1.6 cm on right Patient states she recalls being told she had aneurysm in past (12) DVT prophylaxis: SCDS/TEDS patients son Hilton ([phone], other son [phone] Benigno) Subjective Patient seen and examined in the recovery are after back surgery. She is on nasal cannula. No acute distress. She was able to answer questions appropriately. She is tolerating back discomforts. no chest pain. no abdomen pain. Physical Exam Constitutional: WD/WN, vitals as above Eyes: PERRL, conjunctivae normal, anicteric sclerae EOM intact bilaterally ENMT: external ear and nose normal, oropharynx normal Neck: trachea midline, no thyromegaly Respiratory: normal respiratory effort, lungs clear to auscultation Cardiovascular: RRR, no murmur, no edema Gastrointestinal (Abdomen): normal bowel sounds, soft, nontender, no hepatosplenomegaly Musculoskeletal: Head/Neck/Chest: normocephalic and head atraumatic Neurologic: PERRL, EOMI, accommodation nl, no face palsy, no dysarthria Psychiatric: Orientation: alert, oriented to person, oriented to place, o riented to time and cooperative Results & Data Vital Signs (Past 12 Hours) Vital Signs Temp Pulse Pulse Pulse Resp BP BP 03/27/19 18:30 36.4 C L 60 12 135/56 L 03/27/19 18:20 36.4 C L 60 12 135/56 L 03/27/19 18:10 60 12 147/62 H 03/27/19 18:00 60 14 160/65 H 03/27/19 17:50 60 12 157/65 H 03/27/19 17:43 36.2 C L 64 12 167/72 H 03/27/19 15:25 60 152/99 H 03/27/19 15:22 36.4 C L 65 18 174/75 H 03/27/19 14:55 36.3 C L 62 16 164/72 H 03/27/19 11:55 36.3 C L 60 16 132/68 03/27/19 07:46 36.7 C 66 16 142/88 H Pulse Ox 03/27/19 18:30 98 03/27/19 18:20 98 03/27/19 18:10 97 03/27/19 18:00 99 03/27/19 17:50 99 03/27/19 17:43 99 03/27/19 15:25 03/27/19 15:22 95 03/27/19 14:55 94 03/27/19 11:55 93 03/27/19 07:46 92 (1) Compression fracture of third lumbar vertebra Encounter type: initial encounter Qualified Code(s): S32.030A - Wedge compression fracture of third lumbar vertebra, initial encounter for closed fracture
[2019-03-27] MEDS: OXYCODONE HCL IR 5 MG TAB (IMMEDIATE RELEASE) PO PRN (19:12)
[2019-03-27] MEDS ORDERED: LACTATED RINGER'S 1,000 ML IV ONE (20:28)
[2019-03-27 21:12] LABS: Calcium 9.2 mg/dl (8.5-10.1); Creatinine Clr Calc Pharmacy 44.8 ml/min; Est GFR (African American) 58.3; Est GFR (Non-African American) 50.3; Magnesium 2.5 mg/dl (1.8-2.4); Potassium 4.1 mmol/L (3.5-5.1)
[2019-03-27] MEDS: ROSUVASTATIN CALCIUM 20 MG TAB PO SCH (21:38)
[2019-03-28] MEDS: ACETAMINOPHEN 325 MG TAB PO SCH ×4 (06:20→22:28)
[2019-03-28] MEDS: LEVOTHYROXINE SODIUM 75 MCG TABLET PO SCH (06:20)
[2019-03-28] MEDS: OXYCODONE HCL IR 5 MG TAB (IMMEDIATE RELEASE) PO PRN (07:51)
[2019-03-28] MEDS: CILOSTAZOL 100 MG TAB PO SCH ×2 (07:56→21:24)
[2019-03-28] MEDS: DOCUSATE SODIUM 100 MG CAP PO SCH ×2 (07:56→21:23)
[2019-03-28] MEDS: cephALEXin 500 MG CAP PO SCH ×2 (07:56→21:24)
[2019-03-28] MEDS: SENNA 8.6 MG TAB PO SCH (07:57)
[2019-03-28] MEDS: CARVEDILOL 25 MG TAB PO SCH ×2 (07:57→21:24)
[2019-03-28 08:00] LABS: Hemoglobin 13.1 g/dL (12.0-16.0); Immature Granulocytes # (auto) 0.01 K/uL (0.00-0.02); Immature Granulocytes % (auto) 0.2 %; Lymphocytes # (auto) 0.68 K/uL (1.2-3.4); Lymphocytes % (auto) 13.5 %; Mean Corpuscular Volume 88.7 fL (80-100); Mean Platelet Volume 10.2 fL (7.4-10.4); Monocytes # (auto) 0.48 K/uL (0.11-0.59); Monocytes % (auto) 9.6 %; Neutrophils # (auto) 3.85 K/uL (1.4-6.5); Neutrophils % (auto) 76.7 %; Platelet Count 182 K/uL (130-400); RDW Coefficient of Variation 13.4 % (11.5-14.5); RDW Standard Deviation 42.9 fL (36.4-46.3); Red Blood Count 4.17 M/uL (4.2-5.4); White Blood Count 5.02 K/uL (4.8-10.8)
[2019-03-28 08:03] LABS: Mean Corpuscular Hgb Conc 35.4 g/dL (32-36)
[2019-03-28 08:16] LABS: BUN Creatinine Ratio 28.1 (10-20); Creatinine Clr Calc Pharmacy 46.2 ml/min; Est GFR (African American) 60.4; Est GFR (Non-African American) 52.1; Potassium 4.2 mmol/L (3.5-5.1)
[2019-03-28 08:19] LABS: Albumin Globulin Ratio 0.8 (0.9-2); Bilirubin,Total 0.5 mg/dl (0.2-1); Globulin 3.8 gm/dl (2.5-4.0); Total Protein 6.8 gm/dl (6.4-8.2)
[2019-03-28] MEDS: CITALOPRAM 20 MG TAB PO SCH (08:40)
[2019-03-28] MEDS: ASPIRIN 81 MG ECTAB PO SCH (08:41)
[2019-03-28] MEDS: GABAPENTIN 300 MG CAP PO SCH ×2 (08:42→21:24)
[2019-03-28] MEDS: LOSARTAN POTASSIUM 50 MG TAB PO SCH (08:43)
[2019-03-28] MEDS: AMLODIPINE BESYLATE 5 MG TAB PO SCH (08:54)
--- NOTE | 2019-03-28 09:51 | Orthopedic Progress Note ---
Date of Service March 28, 2019 Assessment & Plan (1) Compression fracture of third lumbar vertebra: This time we will encourage physical therapy ambulate to tolerance. Strongly suspect a component of her back discomfort is prolonged inactivity. Present on Admission?: Yes Subjective Patient still has some back pain more in the right SI joint region. She continues to deny any leg pain. Overall notes some improvement. Physical Exam Physical Exam: Patient is standing with a walker. She has no pain to pa lpation or percussion of the lumbar musculature. Some tenderness of the right SI joint. Results & Data Vital Signs (Past 12 Hours) Vital Signs Temp Pulse Pulse Resp BP Pulse Ox 03/28/19 07:17 36.5 C 63 16 144/70 H 92 03/28/19 03:12 35.6 C L 66 14 123/65 92 03/27/19 23:04 36.3 C L 60 14 146/73 H 92 (1) Compression fracture of third lumbar vertebra Encounter type: initial encounter Qualified Code(s): S32.030A - Wedge compression fracture of third lumbar vertebra, initial encounter for closed fracture
--- NOTE | 2019-03-28 14:14 | Hospitalist Progress Note ---
Date of Service March 28, 2019 Assessment & Plan (1) Intractable low back pain: (2) Compression fracture of third lumbar vertebra: (3) Spinal stenosis: This is an 89-year-old female who has a significant past medical history of HTN, HLD, PAD, heart block status post PPM approximately 10 years ago, hypothyroidism, history of breast cancer status post right partial mastectomy in 1997, osteoporosis, arthritis, lumbar spinal stenosis who presents to [facility] ED secondary to intractable low back pain x1 week. -Patient had CT spine lumbar without contrast on 03/21/[address] [address] (Multilevel lateral recess and neuroforaminal stenosis extending from the L2 through the S1 levels secondary to desiccation and disc bulge and hypertrophic degenerative facet arthropathy. Mild chronic appearing compression fractures of L3 and L5. Severe osteoporosis. 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 on the left and 1.4 cm on the right.) -Patient presented to the ED at [facility] on 03/23/19 for per sistent low back pain for which she could not find relief when laying flat (Patient reports that shes has been taking NSAIDs 3 to 4 times a day and medrol pack at home without relief especially when she tries to lay flat and when she is in a position to try to stand up) -as per the radiology interpretation at [facility] CT Abdomen finding of Old L5 compression fracture with acute appearing mild L3 compression fracture with minimal retropulsion and incidental findings of extensive diverticulosis but no evidence of and again the bilateral renal artery aneurysms were again noted 1.7 cm on the left and 1.6 cm on the right. -patient started on scheduled acetaminophen 325 mg every 6 hours ; Tramadol 50mg q4hr prn for pain; oxycodone 5 mg q4 hour prn , prn IV narcotic, medrol dose pack, gabapentin 300 mg BID, Lidoderm patch and by 03/25/19 there are some improvements in pain control as patient able to lay flat on the bed -03/25/19: nurse reports patient not taking tramadol because it does not work for the pain, and taking the oxycodone often. will stop tramadol and stop oxycodone and change to oxycodone sustained release 10 mg q12 hours as scheduled medication, continue other medications as above -bowel regimen while on narcotic pain medications -continue PT/OT evaluations -Patient on 03/27/19 had as per the orthopedic operative report kyphoplasty L3 and biopsy of L3 vertebral body for post-Op Diagnosis of L3 COMPRESSION FRACTURE; Orthopedic surgeon Dr. Presley recommends to titrate down the oxycodone sustained release as he believes that patient's general level of back pain will improve from surgical intervention -03/28/19 patient doing well with less pain medication requirements (4) DAMON (acute kidney injury): acute kidney injury has resolved from initial presentation stable renal function after the surgery and IV fluids can be stopped (5) UTI (urinary tract infection): Diagnosed at OSH on 03/22/19 Started on Keflex 500 mg 4 times daily as outpatient and will complete course on 03/30/19 Urinalysis negative in ED on this hospital presentation (6) HTN (hypertension): Blood pressure elevated from pain -Continue carvedilol BID, losartan -resume HCTZ -continue amlodipine as started in the hospital (7) HLD (hyperlipidemia): Continue statin (8) PAD (peripheral artery disease): Continue Pletal, Statin resume aspirin starting on 03/29/19 (9) History of cardiac pacemaker: hx of heart block s/p PPM approx 10 yrs ago Follows Cardiology in [place], [place] no chest pain (10) Hypothyroidism: Continue levothyroxine (11) Renal artery aneurysm: bilateral renal artery aneurysm Incidental finding on CT 1.7 cm left, 1.6 cm on right Patient states she recalls being told she had aneurysm in past outpatient monitoring (12) DVT prophylaxis: Lovenox 30 mg daily patients son Hilton ([phone], other son [phone] Benigno) 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 She has been able to sit up in the chair. as per nurse patient did some ambulation activities. Patient reports there is still back pain as before the surgery. But appears much more comfortable and less miserable. no shortness of breath. no chest pain. no abdomen pain. no nausea. no vomiting Physical Exam Constitutional: WD/WN, vitals as above Eyes: PERRL, conjunctivae normal, anicteric sclerae EOM intact bilaterally ENMT: external ear and nose normal, oropharynx normal Neck: trachea midline, no thyromegaly normal visual inspection Respiratory: normal respiratory effort, lungs clear to auscultation Cardiovascular: RRR, no murmur, no edema Gastrointestinal (Abdomen): normal bowel sounds, soft, nontender, no hepatosplenomegaly Musculoskeletal: Head/Neck/Chest: normocephalic and head atraumatic Neurologic: PERRL, EOMI, accommodation nl, no face palsy, no dysarthria Psychiatric: A+Ox3, euthymic affect Orientation: alert, oriented to person, oriented to place, oriented to time and cooperative Results & Data Vital Signs (Past 12 Hours) Vital Signs Temp Pulse Pulse Resp BP Pulse Ox 03/28/19 11:20 36.4 C L 66 16 131/65 93 03/28/19 07:17 36.5 C 63 16 144/70 H 92 03/28/19 03:12 35.6 C L 66 14 123/65 92 (1) Compression fracture of third lumbar vertebra Encounter type: initial encounter Qualified Code(s): S32.030A - Wedge compression fracture of third lumbar vertebra, initial encounter for closed fracture
[2019-03-28] MEDS: hydroCHLOROthiazide 25 MG TAB PO SCH (14:38)
[2019-03-28] MEDS: ROSUVASTATIN CALCIUM 20 MG TAB PO SCH (21:24)
[2019-03-29] MEDS: OXYCODONE HCL IR 5 MG TAB (IMMEDIATE RELEASE) PO PRN ×2 (01:27→07:28)
[2019-03-29] MEDS: HYDROmorphone INJ 0.5 MG/0.5 ML SYR IV PRN (05:23)
[2019-03-29] MEDS: ACETAMINOPHEN 325 MG TAB PO SCH ×2 (05:23→10:37)
[2019-03-29] MEDS: LEVOTHYROXINE SODIUM 75 MCG TABLET PO SCH (05:23)
[2019-03-29] MEDS: LOSARTAN POTASSIUM 50 MG TAB PO SCH (07:24)
[2019-03-29] MEDS: AMLODIPINE BESYLATE 5 MG TAB PO SCH (07:24)
[2019-03-29] MEDS: DOCUSATE SODIUM 100 MG CAP PO SCH (07:24)
[2019-03-29] MEDS: CITALOPRAM 20 MG TAB PO SCH (07:24)
[2019-03-29] MEDS: CILOSTAZOL 100 MG TAB PO SCH (07:25)
[2019-03-29] MEDS: SENNA 8.6 MG TAB PO SCH (07:25)
[2019-03-29] MEDS: CARVEDILOL 25 MG TAB PO SCH (07:25)
[2019-03-29] MEDS: GABAPENTIN 300 MG CAP PO SCH (07:25)
[2019-03-29] MEDS: ASPIRIN 81 MG ECTAB PO SCH (07:25)
[2019-03-29] MEDS: cephALEXin 500 MG CAP PO SCH (07:25)
[2019-03-29] MEDS: hydroCHLOROthiazide 25 MG TAB PO SCH (07:26)
[2019-03-29 08:19] LABS: Basophils # (auto) 0.01 K/uL (0-0.2); Basophils % (auto) 0.2 %; Eosinophils # (auto) 0.09 K/uL (0-0.5); Eosinophils % (auto) 1.5 %; Hematocrit (blood only) 37.9 % (37-47); Hemoglobin 13.1 g/dL (12.0-16.0); Immature Granulocytes # (auto) 0.01 K/uL (0.00-0.02); Immature Granulocytes % (auto) 0.2 %; Lymphocytes # (auto) 1.32 K/uL (1.2-3.4); Lymphocytes % (auto) 21.7 %; Mean Corpuscular Hgb Conc 34.6 g/dL (32-36); Mean Corpuscular Volume 91.8 fL (80-100); Mean Platelet Volume 10.2 fL (7.4-10.4); Monocytes # (auto) 0.82 K/uL (0.11-0.59); Monocytes % (auto) 13.5 %; Neutrophils # (auto) 3.84 K/uL (1.4-6.5); Neutrophils % (auto) 62.9 %; Platelet Count 194 K/uL (130-400); RDW Coefficient of Variation 13.7 % (11.5-14.5); RDW Standard Deviation 45.3 fL (36.4-46.3); Red Blood Count 4.13 M/uL (4.2-5.4); White Blood Count 6.09 K/uL (4.8-10.8)
[2019-03-29 08:50] LABS: BUN Creatinine Ratio 30.9 (10-20); Calcium 9.3 mg/dl (8.5-10.1); Creatinine Clr Calc Pharmacy 42.3 ml/min; Est GFR (African American) 54.3; Est GFR (Non-African American) 46.8; Potassium 3.9 mmol/L (3.5-5.1)
[2019-03-29 08:53] LABS: Albumin Globulin Ratio 0.8 (0.9-2); Bilirubin,Total 0.4 mg/dl (0.2-1); Globulin 3.9 gm/dl (2.5-4.0); Total Protein 6.9 gm/dl (6.4-8.2)
--- NOTE | 2019-03-29 12:58 | Orthopedic Progress Note ---
Date of Service March 29, 2019 Assessment & Plan (1) Compression fracture of third lumbar vertebra: This time continue to encourage physical therapy continue to wean her from narcotics and hopefully discharge home. Present on Admission?: Yes Subjective Patient's back pain is controlled she is struggling with some complaints of right SI joint pain. Physical Exam Physical Exam: On exam she is in the chair at the bedside. She has good strength testing lower extremity's. She has no pain to palpation of the lumbar musculature. She has some tenderness palpation of the right SI joint region. Results & Data Vital Signs (Past 12 Hours) Vital Signs Temp Pulse Resp BP Pulse Ox 03/29/19 08:06 36.4 C L 60 13 104/48 L 94 (1) Compression fracture of third lumbar vertebra Encounter type: initial encounter Qualified Code(s): S32.030A - Wedge compression fracture of third lumbar vertebra, initial encounter for closed fracture
[2019-03-29] MEDS ORDERED: TRAMADOL HCL 50 MG TABLET PO PRN (13:26)
--- NOTE | 2019-03-29 13:50 | Hospitalist Progress Note ---
Date of Service March 29, 2019 Assessment & Plan (1) Intractable low back pain: (2) Compression fracture of third lumbar vertebra: (3) Spinal stenosis: This is an 89-year-old female who has a significant past medical history of HTN, HLD, PAD, heart block status post PPM approximately 10 years ago, hypothyroidism, history of breast cancer status post right partial mastectomy in 1997, osteoporosis, arthritis, lumbar spinal stenosis who presents to [facility] ED secondary to intractable low back pain x1 week. -Patient had CT spine lumbar without contrast on 03/21/[address] [address] (Multilevel lateral recess and neuroforaminal stenosis extending from the L2 through the S1 levels secondary to desiccation and disc bulge and hypertrophic degenerative facet arthropathy. Mild chronic appearing compression fractures of L3 and L5. Severe osteoporosis. 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 on the left and 1.4 cm on the right.) -Patient presented to the ED at [facility] on 03/23/19 for per sistent low back pain for which she could not find relief when laying flat (Patient reports that shes has been taking NSAIDs 3 to 4 times a day and medrol pack at home without relief especially when she tries to lay flat and when she is in a position to try to stand up) -as per the radiology interpretation at [facility] CT Abdomen finding of Old L5 compression fracture with acute appearing mild L3 compression fracture with minimal retropulsion and incidental findings of extensive diverticulosis but no evidence of and again the bilateral renal artery aneurysms were again noted 1.7 cm on the left and 1.6 cm on the right. -patient started on scheduled acetaminophen 325 mg every 6 hours ; Tramadol 50mg q4hr prn for pain; oxycodone 5 mg q4 hour prn , prn IV narcotic, medrol dose pack, gabapentin 300 mg BID, Lidoderm patch and by 03/25/19 there are some improvements in pain control as patient able to lay flat on the bed -03/25/19: nurse reports patient not taking tramadol because it does not work for the pain, and taking the oxycodone often. will stop tramadol and stop oxycodone and change to oxycodone sustained release 10 mg q12 hours as scheduled medication, continue other medications as above -bowel regimen while on narcotic pain medications -continue PT/OT evaluations -Patient on 03/27/19 had as per the orthopedic operative report kyphoplasty L3 and biopsy of L3 vertebral body for post-Op Diagnosis of L3 COMPRESSION FRACTURE; Orthopedic surgeon Dr. Presley recommends to titrate down the oxycodone sustained release as he believes that patient's general level of back pain will improve from surgical intervention -03/28/19 patient doing well with less pain medication requirements -03/29/19: Discharge to [facility] Patient declined to be fitted for back brace Patient should follow up with primary care doctor in 1 week for further pain control and for follow up of renal artery aneurysm Patient has had sufficient treatment for treatment of urinary tract infection and no further antibiotic needed on discharge day Dr. Jackson Presley was performing surgeon for the patient and patient may call for follow up Address: [address] [place] [id number] [place] PDMP was checked and patient does not have any controlled substances prescribed in the past year before the hospital stay Patient may take acetaminophen 325 mg every 6 hours for a total of 7 days only for baseline pain (Patient may refuse these doses if pain controlled) Patient can take tramadol 50 mg every 4 hours as needed for moderate pain (4 day supply prescribed) Patient can take can take oxycodone 5 mg every 6 hours as needed for moderate to severe pain (4 day supply prescribed) Patient should take daily sennosides and twice a day docusate to prevent constipation while on pain medications Patient may take additional 17 gram daily Miralax if having constipation (4) DAMON (acute kidney injury): acute kidney injury has resolved from initial presentation stable renal function after the surgery and IV fluids stopped as of 03/28/19 (5) UTI (urinary tract infection): -Diagnosed at OSH on 03/22/19 -Started on Keflex 500 mg 4 times daily as outpatient and had expected complete course on 03/30/19 -Urinalysis negative in ED on this hospital presentation -patient had been continued of Keflex despite good urine results to further maintain clearance of potential urinary bacteria -Patient should follow up with primary care doctor in 1 week for further pain control and for follow up of renal artery aneurysm Patient has had sufficient treatment for treatment of urinary tract infection and no further antibiotic needed on discharge day (6) HTN (hypertension): Blood pressure elevated from pain -Continue carvedilol BID, losartan -resumed HCTZ, continue -patient also had amlodipine 10 mg daily in the hospital which was started before back surgery when blood was very high likely from pain -will stop amlodipine on discharge as blood pressures are now very well controlled (7) HLD (hyperlipidemia): Continue statin (8) PAD (peripheral artery disease): Continue Pletal, Statin resume aspirin starting on 03/29/19 (9) History of cardiac pacemaker: hx of heart block s/p PPM approx 10 yrs ago Follows Cardiology in [place], [place] no chest pain (10) Hypothyroidism: Continue levothyroxine (11) Renal artery aneurysm: bilateral renal artery aneurysm Incidental finding on CT 1.7 cm left, 1.6 cm on right Patient states she recalls being told she had aneurysm in past outpatient monitoring (12) DVT prophylaxis: Lovenox 30 mg daily patients son Hilton ([phone], other son [phone] Benigno) Discharge Diagnosis Intractable low back pain; Compression fracture of third lumbar vertebra (kyphoplasty L3; biopsy of L3 vertebral body performed on 03/27/19); Spinal stenosis; hypertension, urinary tract infection, bilateral renal artery aneurysm Subjective Patient sitting up right in the chair. She declined being fitted for back brace. no shortness of breath. no abdomen pain. no vomiting. no headache. no dizziness. no lightheadedness Physical Exam Constitutional: WD/WN, vitals as above Eyes: PERRL, conjunctivae normal, anicteric sclerae EOM intact bilaterally ENMT: external ear and nose normal, oropharynx normal Neck: trachea midline, no thyromegaly normal visual inspection Respiratory: normal respiratory effort, lungs clear to auscultation Cardiovascular: RRR, no murmur, no edema Gastrointestinal (Abdomen): normal bowel sounds, soft, nontender, no hepatosp lenomegaly Musculoskeletal: Head/Neck/Chest: normocephalic and head atraumatic Neurologic: PERRL, EOMI, accommodation nl, no face palsy, no dysarthria Psychiatric: A+Ox3, euthymic affect Results & Data Vital Signs (Past 12 Hours) Vital Signs Temp Pulse Resp BP Pulse Ox 03/29/19 08:06 36.4 C L 60 13 104/48 L 94 (1) Compression fracture of third lumbar vertebra Encounter type: initial encounter Qualified Code(s): S32.030A - Wedge compression fracture of third lumbar vertebra, initial encounter for closed fracture
--- NOTE | 2019-03-29 13:59 | Discharge Summary ---
Date of Service March 29, 2019 Admission HPI Per Admitting Provider This is an 89-year-old female who has a significant past medical history of HTN, HLD, PAD, heart block status post PPM approximately 10 years ago, hypothyroidism, history of breast cancer status post right partial mastectomy in 1997, osteoporosis, arthritis, lumbar spinal stenosis who presents to [facility] ED secondary to low back pain x1 week. Son is at bedside. No known injury. She states approximately 1 week ago she was favoring her right knee when she may have twisted wrong causing her to have low back pain. Pain is located in the low back region bilaterally, no radiation, described as dull ache when sitting and becomes sharp stabbing with movement or lying down. Currently she is sitting in wheelchair and feels her pain is approximately 5/10 after having IV fentanyl. She has been unable to lie in bed for the past week secondary to her pain. She has tried [id number] Motrin with minimal relief. At baseline she ambulates with a cane but has had significant difficulty ambulating. She was to be seen by Dr. Li on Wednesday but due to debilitating pain opted to come to ED for further evaluation. She was seen in [facility] on 03/[address] scan of the lumbar spine which revealed multilevel lateral recess and neuroforaminal stenosis extending from L2-S1 secondary to desiccation and disc bulge as well as significant facet arthropathy. She had chronic appearing compression fractures of L3 and L5 with severe osteoporosis noted. Also incidentally she had bilateral renal artery aneurysms measuring 1.6 cm on the left and 1.4 cm on the right. Further she was diagnosed with urinary tract infection and placed on Keflex for 7 days. She was also treated with Medrol Dosepak for back pain. In regards to her uti she states her sx are, "leakage and frequency." She denies dysuria, hematuria, increased urgency. Further she denies fever, chills, sweats, lightheadedness, chest pain, shortness of breath, nausea, vomiting, abdominal pain, change in bowel habits. She does elicit to nausea when pain is severe. She also elicits to dizziness with standing quickly. In ED patient underwent CT scan of abdomen and pelvis for persistent low back pain. CT revealed acute appearing mild L3 compression fracture with minimal retropulsion along with old L5 compression fracture. There was extensive diverticulosis but no evidence of diverticulitis. Incidentally bilateral renal artery aneurysms were again noted 1.7 cm on the left and 1.6 cm on the right. No other acute abnormality. Her CBC was relatively unremarkable. CMP significant for elevated BUN 24 cre atinine 1.25 with unknown baseline. Her urine appeared negative for infection. Admission Exam Per Admitting Provider Gen: WD/WN, Eldery, F, sitting up in wheel chair, NAD, pleasant, conversing easily Head: Normocephalic, Atraumatic Eyes: Sclera normal, no conjunctival injection, PERRLA, EOMI ENT: Gross hearing intact, normal pharynx, mucous membranes moist Neck: supple, no adenopathy, No JVD, no bruit, Resp: Clear to auscultation b/l, no wheeze, rales, rhonchi. Normal insp/exp effort, no accessory muscle use CV: Regular rate, regular rhythm, 1/6 KACY noted RUSB, no rub, gallop, or ectopy, LACW pacer Abd: +BS x 4, soft, nontender, nondistended Musculoskeletal: moves extremities active rom x 4, strength intact, good marketing officer strength, difficult/inabilty to flex/extend at torso due to pain. No pain to palpation along vertebral processes, +straight leg raise Extremities: No edema bilaterally Skin: warm, moist, no rash, negative turgor, cap refill < 2sec Neuro: Alert and oriented x 3, speech normal, good mood/affect, cran nerve 2-12 intact grossly : deferred Principal Diagnosis Intractable low back pain; Compression fracture of third lumbar vertebra (kyphoplasty L3; biopsy of L3 vertebral body performed on 03/27/19); Spinal stenosis; hypertension, urinary tract infection, bilateral renal artery aneurysm Discharge Exam Constitutional WD/WN, vitals as above Eyes PERRL, conjunctivae normal, anicteric sclerae EOM intact bilaterally ENMT external ear and nose normal, oropharynx normal Neck trachea midline, no thyromegaly normal visual inspection Respiratory normal respiratory effort, lungs clear to auscultation Cardiovascular RRR, no murmur, no edema Gastrointestinal (Abdomen) normal bowel sounds, soft, nontender, no hepatosplenomegaly Musculoskeletal Head/Neck/Chest: normocephalic and head atraumatic Neurologic PERRL, EOMI, accommodation nl, no face palsy, no dysarthria Psychiatric A+Ox3, euthymic affect Discharge Data Allergies Allergy/AdvReac Type Severity Reaction Status Date / Time meperidine Allergy Unknown Unknown Verified 03/27/19 17:08 Penicillins Allergy Unknown Unknown Verified 03/27/19 17:08 tetracycline Allergy Unknown Unknown Verified 03/27/19 17:08 Tetracyclines Allergy Unknown Unknown Verified 03/27/19 17:08 Consultations 03/24/19 13:59 ED Decision to Admit Stat 03/24/19 14:42 Consult Orthopedic Surgery Routine 03/24/19 16:31 Consult Case Management - Discharge Planning Routine 03/24/19 16:56 Consult Pain Management Routine Procedures Performed Operation Date: 03/27/19 09:20 Actual Procedures p Kyphoplasty with biopsy L3 - Jackson Presley DO Ordered Studies 03/24/19 11:32 CT abd pelvis IV con only Stat 03/25/19 10:29 CT lumbar spine wo con Urgent 03/27/19 09:41 FL fluoroscopy <1hr Routine FL lumbar spine 2-3V Routine Hospital Course (1) Intractable low back pain: (2) Compression fracture of third lumbar vertebra: (3) Spinal stenosis: This is an 89-year-old female who has a significant past medical history of HTN, HLD, PAD, heart block status post PPM approximately 10 years ago, hypothyroidism, history of breast cancer status post right partial mastectomy in 1997, osteoporosis, arthritis, lumbar spinal stenosis who presents to [facility] ED secondary to intractable low back pain x1 week. -Patient had CT spine lumbar without contrast on 03/21/19 [place] [address] (Multilevel lateral recess and neuroforaminal stenosis extending from the L2 through the S1 levels secondary to desiccation and disc bulge and hypertrophic degenerative facet arthropathy. Mild chronic appearing compression fractures of L3 and L5. Severe osteoporosis. 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 on the left and 1.4 cm on the right.) -Patient presented to the ED at [facility] on 03/23/19 for persistent low back pain for which she could not find relief when laying flat (Patient reports that shes has been taking NSAIDs 3 to 4 times a day and medrol pack at home without relief especially when she tries to lay flat and when she is in a position to try to stand up) -as per the radiology interpretation at [facility] CT Abdomen finding of Old L5 compression fracture with acute appearing mild L3 compression fracture with minimal retropulsion and incidental findings of extensive diverticulosis but no evidence of and again the bilateral renal artery aneurysms were again noted 1.7 cm on the left and 1.6 cm on the right. -patient started on scheduled acetaminophen 325 mg every 6 hours ; Tramadol 50mg q4hr prn for pain; oxycodone 5 mg q4 hour prn , prn IV narcotic, medrol dose pack, gabapentin 300 mg BID, Lidoderm patch and by 03/25/19 there are some improvements in pain control as patient able to lay flat on the bed -03/25/19: nurse reports patient not taking tramadol because it does not work for the pain, and taking the oxycodone often. will stop tramadol and stop oxycodone and change to oxycodone sustained release 10 mg q12 hours as scheduled medication, continue other medications as above -bowel regimen while on narcotic pain medications -continue PT/OT evaluations -Patient on 03/27/19 had as per the orthopedic operative report kyphoplasty L3 and biopsy of L3 vertebral body for post-Op Diagnosis of L3 COMPRESSION FRACTURE; Orthopedic surgeon Dr. Presley recommends to titrate down the oxycodone sustained release as he believes that patient's general level of back pain will improve from surgical intervention -03/28/19 patient doing well with less pain medication requirements -03/29/19: Discharge to [facility] Patient declined to be fitted for back brace Patient should follow up with primary care doctor in 1 week for further pain control and for follow up of renal artery aneurysm Patient has had sufficient treatment for treatment of urinary tract infection and no further antibiotic needed on discharge day Dr. Jackson Presley was performing surgeon for the patient and patient may call for follow up Address: [address] [place] [address], [place] [address] [place] PDMP was checked and patient does not have any controlled substances prescribed in the past year before the hospital stay Patient may take acetaminophen 325 mg every 6 hours for a total of 7 days only for baseline pain (Patient may refuse these doses if pain controlled) Patient can take tramadol 50 mg every 4 hours as needed for moderate pain (4 day supply prescribed) Patient can take can take oxycodone 5 mg every 6 hours as needed for moderate to severe pain (4 day supply prescribed) Patient should take daily sennosides and twice a day docusate to prevent constipation while on pain medications Patient may take additional 17 gram daily Miralax if having constipation (4) DAMON (acute kidney injury): acute kidney injury has resolved from initial presentation stable renal function after the surgery and IV fluids stopped as of 03/28/19 (5) UTI (urinary tract infection): -Diagnosed at OSH on 03/22/19 -Started on Keflex 500 mg 4 times daily as outpatient and had expected complete course on 03/30/19 -Urinalysis negative in ED on this hospital presentation -patient had been continued of Keflex despite good urine results to further maintain clearance of potential urinary bacteria -Patient should follow up with primary care doctor in 1 week for further pain control and for follow up of renal artery aneurysm Patient has had sufficient treatment for treatment of urinary tract infection and no further antibiotic needed on discharge day (6) HTN (hypertension): Blood pressure elevated from pain -Continue carvedilol BID, losartan -resumed HCTZ, continue -patient also had amlodipine 10 mg daily in the hospital which was started before back surgery when blood was very high likely from pain -will stop amlodipine on discharge as blood pressures are now very well controlled (7) HLD (hyperlipidemia): Continue statin (8) PAD (peripheral artery disease): Continue Pletal, Statin resume aspirin starting on 03/29/19 (9) History of cardiac pacemaker: hx of heart block s/p PPM approx 10 yrs ago Follows Cardiology in [place], [place] no chest pain (10) Hypothyroidism: Continue levothyroxine (11) Renal artery aneurysm: bilateral renal artery aneurysm Incidental finding on CT 1.7 cm left, 1.6 cm on right Patient states she recalls being told she had aneurysm in past outpatient monitoring (12) DVT prophylaxis: Lovenox 30 mg daily patients son Hilton ([phone], other son [phone] Benigno) Discharge Diagnosis Intractable low back pain; Compression fracture of third lumbar vertebra (kyphoplasty L3; biopsy of L3 vertebral body performed on 03/27/19); Spinal stenosis; hypertension, urinary tract infection, bilateral renal artery aneurysm Total Time Total Time Spent Total Time Spent (In Minutes): 40 minutes Total Time Includes: Examination of the Patient, Discharge Planning, Medication Reconciliation and Communication With Other Providers Discharge Plan Discharge Items Patient Disposition: Transfer Inpatient Rehab Fac Reason For Visit: L3 COMPRESSION FX; LOW BACK PAIN Discharge Diagnosis: Intractable low back pain; Compression fracture of third lumbar vertebra (kyphoplasty L3; biopsy of L3 vertebral body performed on 03/27/19); Spinal stenosis; hypertension, urinary tract infection, bilateral renal artery aneurysm Condition: Good Discharge Goals: Improve function Activity: Per 'Additional Instructions' section Non-emergency contact: Primary Care Provider Call non-emergency contact if: you have any medication questions Follow-up/Referrals: Ailyn Stevens [Primary Care Provider] - Diet: Heart Healthy Addtl Provider Instructions: Discharge to [facility] Patient declined to be fitted for back brace Patient should follow up with primary care doctor in 1 week for further pain control and for follow up of renal artery aneurysm Patient has had sufficient treatment for tretament of urinary tract infection and no further antibiotic needed on discharge day Dr. Jackson Presley was performing surgeon for the patient and patient may call for follow up Address: [address] [place] [address] [place] PDMP was checked and patient does not have any controlled substan sergo prescribed in the past year before the hospital stay Patient may take acetaminophen 325 mg every 6 hours for a total of 7 days only for baseline pain (Patient may refuse these doses if pain controlled) Patient can take tramadol 50 mg every 4 hours as needed for moderate pain (4 day supply prescribed) Patient can take can take oxycodone 5 mg every 6 hours as needed for moderate to severe pain (4 day supply prescribed) Patient should take daily sennosides and twice a day docusate to prevent constipation while on pain medications Patient may take additional 17 gram daily Miralax if having constipation Prescriptions: New sennosides [Senokot] 8.6 mg Tablet 8.6 mg PO QAM 30 Days Qty: 30 RF: 0 polyethylene glycol 3350 [Miralax] 17 gram Powder In Packet 17 g PO DAILY PRN (Reason: constipation) 30 Days Qty: 30 RF: 0 docusate sodium 100 mg Capsule 100 mg PO BID 30 Days Qty: 60 RF: 0 acetaminophen 325 mg tablet 325 mg PO Q6H 7 Days Qty: 28 RF: 0 oxycodone 5 mg Tablet 5 mg PO Q6 PRN (Reason: moderate to severe pain) 4 Days Qty: 16 RF: 0 tramadol 50 mg Tablet 50 mg PO Q4H PRN (Reason: moderate pain) 4 Days Qty: 16 RF: 0 Continued cilostazol 100 mg tablet 100 mg PO BID RF: 0 carvedilol 25 mg tablet 25 mg PO BID RF: 0 aspirin [Aspirin Low Dose] 81 mg Tablet,Delayed Release (Dr/Ec) 81 mg PO QAM RF: 0 levothyroxine 75 mcg tablet 75 mcg PO MOTUWETHFRSA RF: 0 gabapentin 300 mg capsule 300 mg PO BID RF: 0 losartan-hydrochlorothiazide 50-12.5 mg tablet 1 tab PO QAM RF: 0 rosuvastatin 40 mg tablet 40 mg PO HS RF: 0 Discontinued cephalexin 500 mg capsule 500 mg PO Q6H RF: 0 methylprednisolone 4 mg tablets,dose pack 4 mg PO UD RF: 0 Stand-Alone Forms: [facility] Discharge Orders: Discharge Order (Routine); Ordered 03/29/19 Ordered By: Raheel Bullock Skilled Items Patient informed of condition?: Yes DNR: No Discharge Level of Care: Acute rehab Communicable Disease: No Discharge Prognosis: Stable Admission Data Admit Date/Time: 03/24/19 14:42 Attending Provider: Raheel Bullock Admit Provider: Raheel Bullock Primary Care Provider: Ailyn Stevens Other Providers: Raheel Bullock ; Jackson Presley Jennifer L Service: Medical
== END 2019-03-29 15:07 | DRG 516 ==
LOC: ED 10:55 → 3W 14:42